=== PATIENT | female | born 1935 | race Caucasian/White ===

== ENCOUNTER → 2017-08-28 | Outpatient (CLI) | payer OTHER ==
[2016-06-16 09:57] VITALS: BP 140/63
[2017-08-28 16:31] LABS: ABG BASE EXCESS -1.8 mmol/L (-2.0-2.0); ABG HCO3 21.9 mmol/L (22-26)
== END ==
LOC: RT 16:06
PROVIDERS: ATTEND Internal Medicine
DX: J43.2 Centrilobular emphysema (principal)
CPT/HCPCS: 36600; 82803

== ENCOUNTER 2019-03-21 20:43 | Inpatient (IN) ==
[2019-03-21] MEDS ORDERED: CARDIZEM INJ 50 MG VIAL ONE (21:00)
[2019-03-21] MEDS ORDERED: ADENOCARD INJ 6 MG IVP ONE (21:09)
[2019-03-21] MEDS ORDERED: DUONEB 0.5 MG/3 MG NEB ONE (21:09)
[2019-03-21] MEDS ORDERED: PULMICORT NEB TX 0.5 MG NEB ONE ×2 (21:09→21:11)
[2019-03-21] MEDS ORDERED: CARDIZEM INJ 50 MG VIAL IVP ONE ×2 (21:16→21:44)
[2019-03-21] MEDS ORDERED: SOLU-Medrol 40 MG VIAL IVP ONE (21:25)
--- NOTE | 2019-03-21 21:36 | DR.SOBA ---
HPI Time Seen Time Seen by Provider: 03/21/19 21:09 Complaints Chief Complaint Doctors Comments: An 83 y/o female presenting via EMS unit with worsening of SOB x few days. Also noted with rapid HR which she states has been ongoing over 1 month. With regards to the HR, her son states she is waiting for a procedure to be arranged/done here at this hospital. She was noted in SVT by the EMS crew and received 6 mg of Adenosine IV. This did not convert the rate/rhythm. Reviewed Nurses Notes Reviewed: Yes Source History Provided: Patient, Family Member and EMS Mode of Arrival Mode of Arrival: EMS Context Onset:: At Rest PE Risk Factors:: None History of:: COPD Currently on:: Inhaled Bronchodilators Prehospital Care:: O2 Modifying Factors Worsens:: Lying Flat Improves:: Nothing Associated Signs and Symptoms Associated Signs and Symptoms: None PMH PMH Past Surgical History: Yes ROS Review of Systems Constitutional: No Symptoms Reported Eyes: No Symptoms Reported ENTM: No Symptoms Reported Respiratoy: Short of Breath Cardiovascular: Palpitations; negative No Symptoms Reported, See HPI, Chest Pain, Edema, Syncope, Cyanosis and Skin Mottling Gastrointestinal/Abdominal: No Symptoms Reported Genitourinary: No Symptoms Reported Neurological: No Symptoms Reported Musculoskeletal: No Symptoms Reported Integumentary: No Symptoms Reported Hematologic/Lymphatic: No Symptoms Reported Endocrine: No Symptoms Reported Psychiatric: No Symptoms Reported PE Vital Signs Vitals: Temperature 98 F Pulse Rate 98 Respiratory Rate 31 Blood Pressure 117/61 O2 Sat by Pulse Oximetry 98 General Limitations: No Limitations General Appearance: Alert and In Distress Head Head Exam: Normal Inspection, Atraumatic and Normocephalic Eyes Eye exam: Normal Appearance and EOMI ENT ENT Exam: Normal Oropharynx and Mucous Membranes Moist Neck Neck Exam: Normal Inspection, Full ROM and Trachea Midline Chest Chest Inspection: Normal Inspection and Symmetric Chest Wall Rise Respiratory Respiratory Exam: Accessory Muscle Use, Respiratory Distress and Other (Tachypnea) Respiratory Exam: Bilateral: Decreased Breath Sounds Cardiovascular Cardiovascular Exam: Tachycardia, +S1 and +S2 Abdominal Exam Abdominal Exam: Normal Inspection, Normal Bowel Sounds and Soft Extremities Extremities Exam: Normal Inspection and Full ROM Back Back Exam: Normal Inspection Neurologic Neurological Exam: Alert and Oriented X3 Psychiatric Psychiatric Exam: Normal Affect and Normal Mood Skin Skin Exam: Dry and Normal Color COURSE Reevaluation 1st: Improved 2nd: Improved Education/Counseling Education/Counseling: Patient, Family, Education and Counseling Educated On: Treatment, Diagnosis, Prognosis and Needs for Follow Up ROR Labs Reviewed Result Diagrams: 03/21/19 21:26 03/21/19 21:26 Laboratory: WBC 11.8 X10^3/uL (3.6-10.0) H 03/21/19 21:26 RBC 4.44 X10^6/uL (3.5-5.4) 03/21/19 21:26 Hgb 13.5 g/dL (12.0-16.0) 03/21/19 21:26 Hct 42.4 % (36.0-47.0) 03/21/19 21:26 MCV 95.4 fL (80.0-100.0) 03/21/19 21:26 MCH 30.4 pg (27.0-34.0) 03/21/19 21: MCHC 31.8 g/dL (33.0-35.0) L 03/21/19 21: RDW 15.7 % (11.6-16.5) 03/21/19 21:26 Plt Count 196 X10^3/uL (150.0-450.0) 03/21/19 21:26 MPV 10.8 fL (7.4-11.0) 03/21/19 21:26 Neut % (Auto) 52.0 % (42.0-75.0) 03/21/19 21: Lymph % (Auto) 38.9 % (21.0-51.0) 03/21/19 21:26 [place] % (Auto) 7.2 % (0.0-13.0) 03/21/19 21:26 Eos % (Auto) 1.2 % (0.9-2.9) 03/21/19 21:26 Baso % (Auto) 0.7 % (0.2-1.0) 03/21/19 21:26 Neut # (Auto) 6.1 x10^3/uL (2.2-4.8) H 03/21/19 21:26 Lymph # (Auto) 4.6 X10^3/uL (1.3-2.9) H 03/21/19 21:26 [place] # (Auto) 0.9 x10^3/uL (0.3-0.8) H 03/21/19 21:26 Eos # (Auto) 0.1 x10^3/uL (0.0-0.2) 03/21/19 21:26 Baso # (Auto) 0.1 X10^3/uL (0.0-0.1) 03/21/19 21:26 Absolute Nucleated RBC 0.1 /100WBC 03/21/19 21:26 Sample Site Rbra 03/21/19 23:43 ABG pH 7.300 (7.35-7.45) L 03/21/19 23:43 ABG pCO2 44.0 mmHg (35.0-45.0) 03/21/19 23:43 ABG pO2 178.0 mmHg (80.0-100.0) H 03/21/19 23:43 ABG HCO3 21.6 mmol/L (22-26) L 03/21/19 23:43 ABG O2 Saturation 99.0 % (90-100) 03/21/19 23:43 ABG Base Excess -4.7 mmol/L (-2.0-2.0) L 03/21/19 23:43 Av Test Na 03/21/19 23:43 A-a Gradient 88.0 mmHg 03/21/19 23:43 FiO2 45.0 03/21/19 23:43 Blood Gas Comments Julio abg well-mtf 03/21/19 23:43 Sodium 138 mmol/L (136-145) 03/21/19 21:26 Corrected Sodium 143 mmol/L (136-145) 03/21/19 21:26 Potassium 4.8 mmol/L (3.5-5.1) 03/21/19 21:26 Chloride 102 mmol/L (98-107) 03/21/19 21:26 Carbon Dioxide 25.2 mmol/L (21-32) 03/21/19 21:26 BUN 11 mg/dL (7-18) 03/21/19 21:26 Creatinine 1.19 mg/dL (0.55-1.02) H 03/21/19 21:26 Est GFR (MDRD) Af Amer 56 (>60) L 03/21/19 21:26 Est GFR (MDRD) Non-Af 46 (>60) L 03/21/19 21:26 Glucose 320 mg/dL (65-99) H 03/21/19 21:26 Calcium 8.4 mg/dL (8.5-10.1) L 03/21/19 21:26 Corrected Calcium TNP 03/21/19 21:26 Total Bilirubin 0.80 mg/dL (0.2-1.0) 03/21/19 21:26 AST 16 Units/L (15-37) 03/21/19 21:26 ALT 10 Units/L (12-78) L 03/21/19 21:26 Alkaline Phosphatase 84 Units/L (46-116) 03/21/19 21:26 Creatine Kinase 42 Units/L (26-192) 03/21/19 21:26 CK-MB (CK-2) 1.6 ng/mL (0-4.0) 03/21/19 21:26 CK/CKMB % Calc 3.8 % (<4) 03/21/19 21:26 Troponin I 0.06 ng/mL (0-1.5) 03/21/19 21:26 Total Protein 7.3 g/dL (6.4-8.2) 03/21/19 21:26 Albumin 3.4 g/dL (3.4-5.0) 03/21/19 21:26 Globulin 3.9 g/dL (2.5-4.5) 03/21/19 21:26 Albumin/Globulin Ratio 0.9 Ratio (1.1-2.1) L 03/21/19 21:26 Specimen Type Catherized urine 03/21/19 21:10 Urine Color Yellow (YELLOW) 03/21/19 21:10 Urine Appearance Slightly hazy (CLEAR) 03/21/19 21:10 Urine pH 6.0 (5.0 - 8.0) 03/21/19 21:10 Ur Specific [place] 1.010 (1.000-1.030) 03/21/19 21:10 Urine Protein 2+ (NEGATIVE) 03/21/19 21:10 Urine Glucose (UA) Negative (NEGATIVE) 03/21/19 21:10 Urine Ketones 1+ (NEGATIVE) 03/21/19 21:10 Urine Occult Blood 1+ (NEGATIVE) 03/21/19 21:10 Urine Nitrite Negative (NEGATIVE) 03/21/19 21:10 Urine Bilirubin Negative (NEGATIVE) 03/21/19 21:10 Urine Urobilinogen Normal (NORMAL) 03/21/19 21:10 Ur Leukocyte Esterase Negative (NEGATIVE) 03/21/19 21:10 Urine RBC 3-5 /HPF (NONE SEEN) 03/21/19 21:10 Urine WBC None seen /HPF (NONE SEEN) 03/21/19 21:10 Ur Squamous Epith Cells Rare /HPF (NEGATIVE) 03/21/19 21:10 Amorphous Sediment 2+ /HPF (NEGATIVE) 03/21/19 21:10 Urine Bacteria Trace /HPF (NEGATIVE) 03/21/19 21:10 Hyaline Casts Rare /LPF (NEGATIVE) 03/21/19 21:10 Ur Culture Indicated? No/not indicated 03/21/19 21:10 XRAY XRAY Interpreted by: Self XRAY Findings: CXR: Emhysematous lungs with chronic interstitial markings at the base. EKG Rate: 186 [place]: Normal Rhythm: ST Block: None Hypertrophy: None ST: Normal Opioid Opioid Risk Tool Total: 0 Total Score Risk Category: Low Risk Copyright: [facility] predicting aberrant behaviors Diagnosis Discharge Problem: Acute exacerbation of chronic obstructive pulmonary disease (COPD), Sustained SVT, HTN (hypertension), malignant Respiratory failure, [id number] Qualifiers: Respiratory failure complication: hypoxia and hypercapnia Qualified Code(s): J96.21 - Acute and chronic respiratory failure with hypoxia Instructions Forms: Excuse From Work
[2019-03-21 21:38] LABS: BILIRUBIN,URINE NEGATIVE (NEGATIVE); BLOOD/HEMOGLOBIN,URINE 1+ (NEGATIVE); GLUCOSE, URINE NEGATIVE (NEGATIVE); KETONES,URINE 1+ (NEGATIVE); LEUKOCYTE ESTERASE ,URINE NEGATIVE (NEGATIVE); NITRITES,URINE NEGATIVE (NEGATIVE); PROTEIN,URINE 2+ (NEGATIVE); UROBILINOGEN,URINE NORMAL (NORMAL)
[2019-03-21 21:39] LABS: AMORPHOUS SEDIMENT,UR 2+ /HPF (NEGATIVE); APPEARANCE,URINE SLIGHTLY HAZY (CLEAR); BACTERIA,URINE TRACE /HPF (NEGATIVE); COLOR,URINE YELLOW (YELLOW); HYALINE CASTS, URINE RARE /LPF (NEGATIVE); SQUAMOUS EPITHELIAL CELL,UR RARE /HPF (NEGATIVE)
[2019-03-21] MEDS ORDERED: SOLU-Medrol 40 MG VIAL ONE (21:44)
[2019-03-21 21:50] LABS: ABG BASE EXCESS -7.5 mmol/L (-2.0-2.0); ABG HCO3 22.8 mmol/L (22-26)
[2019-03-21 21:51] LABS: BLOOD UREA NITROGEN 11 mg/dL (7-18); CALCIUM 8.4 mg/dL (8.5-10.1); CARBON DIOXIDE 25.2 mmol/L (21-32); CHLORIDE 102 mmol/L (98-107); COR NA(FOR HYPERGLY) 143 mmol/L (136-145); CREATININE 1.19 mg/dL (0.55-1.02); SODIUM 138 mmol/L (136-145); TROPONIN I 0.06 ng/mL (0-1.5); eGFR NON BLACK RACES 46 (>60)
[2019-03-21 21:55] LABS: BASOPHILS # (AUTO) 0.1 X10^3/uL (0.0-0.1); BASOPHILS % (AUTO) 0.7 % (0.2-1.0); EOSINOPHILS # (AUTO) 0.1 x10^3/uL (0.0-0.2); EOSINOPHILS % (AUTO) 1.2 % (0.9-2.9); HEMATOCRIT 42.4 % (36.0-47.0); HEMOGLOBIN 13.5 g/dL (12.0-16.0); LYMPHOCYTES # (AUTO) 4.6 X10^3/uL (1.3-2.9); LYMPHOCYTES % (AUTO) 38.9 % (21.0-51.0); MEAN CORPUSCULAR HEMOGLOBIN 30.4 pg (27.0-34.0); MEAN CORPUSCULAR HGB CONC 31.8 g/dL (33.0-35.0); MEAN CORPUSCULAR VOLUME 95.4 fL (80.0-100.0); MEAN PLATELET VOLUME 10.8 fL (7.4-11.0); MONOCYTES # (AUTO) 0.9 x10^3/uL (0.3-0.8); MONOCYTES % (AUTO) 7.2 % (0.0-13.0); NEUTROPHILS # (AUTO) 6.1 x10^3/uL (2.2-4.8); PLATELET COUNT 196 X10^3/uL (150.0-450.0); RED BLOOD COUNT 4.44 X10^6/uL (3.5-5.4); RED CELL DISTRIBUTION WIDTH 15.7 % (11.6-16.5); WHITE BLOOD COUNT 11.8 X10^3/uL (3.6-10.0)
[2019-03-21 21:56] LABS: ALANINE AMINOTRANSFERASE 10 Units/L (12-78); ALBUMIN 3.4 g/dL (3.4-5.0); ALKALINE PHOSPHATASE 84 Units/L (46-116); ASPARTATE AMINO TRANSFERASE 16 Units/L (15-37); CKMB % 3.8 % (<4); CREATINE KINASE 42 Units/L (26-192); CREATINE KINASE MB 1.6 ng/mL (0-4.0); TOTAL PROTEIN 7.3 g/dL (6.4-8.2)
[2019-03-21] MEDS ORDERED: ROCEPHIN VIAL 1 GRAM IVP ONE (22:00)
--- NOTE | 2019-03-21 22:06 | RAD ---
HISTORY: Dyspnea Study: Single-view of the chest Comparison: December 19, 2011 Findings: The patient is slightly rotated. The cardiac silhouette is enlarged. Diffuse coarse interstitial changes are seen throughout both lungs. Superimposed patchy bibasilar infiltrate cannot be excluded. Blunting of the costophrenic angles is also noted suggesting pleural thickening and/or small effusions. The aortic knob is partially calcified IMPRESSION: Cardiomegaly. Coarse interstitial changes bilaterally. Superimposed patchy bibasilar infiltrate cannot be excluded. Correlate clinically. Blunting of the costophrenic angles as noted above. Reported By:
[2019-03-21] MEDS ORDERED: ROCEPHIN VIAL 1 GRAM ONE (22:19)
[2019-03-21 23:48] LABS: ABG BASE EXCESS -4.7 mmol/L (-2.0-2.0); ABG HCO3 21.6 mmol/L (22-26)
[2019-03-22] MEDS ORDERED: NS 100 ML IV 100 ML ONE (00:37)
[2019-03-22] MEDS ORDERED: CARDIZEM INJ 125 MG VIAL ONE (00:37)
[2019-03-22] MEDS: NS 1000 ML 1,000 ML IV SCH ×4 (00:51→22:50)
[2019-03-22] MEDS: CARDIZEM INJ 125 MG VIAL 125 MG in NS 100 ML IV 100 ML IV PRN ×2 (00:51→14:02)
[2019-03-22] MEDS ORDERED: DUONEB 0.5 MG/3 MG NEB SCH (01:00)
[2019-03-22] MEDS ORDERED: SALINE 3% 15 ML NEB TX NEB ONE (01:02)
[2019-03-22] MEDS ORDERED: ATIVAN INJ 2 MG VIAL ONE (01:06)
[2019-03-22] MEDS ORDERED: ATIVAN INJ 2 MG VIAL IVP PRN (01:12)
[2019-03-22] MEDS: DUONEB 0.5 MG/3 MG NEB SCH ×6 (01:45→20:08)
[2019-03-22 04:12] VITALS: BMI 19.8
[2019-03-22] MEDS ORDERED: LEVAQUIN PREMIX IV 500 MG 500 MG/100 ML BAG IV ONE (05:00)
[2019-03-22 05:23] LABS: ABG BASE EXCESS -8.1 mmol/L (-2.0-2.0)
[2019-03-22 05:24] LABS: ABG HCO3 17.8 mmol/L (22-26)
[2019-03-22] MEDS ORDERED: XOPENEX 1.25 MG/3 ML NEBULE NEB SCH (06:00)
[2019-03-22] MEDS: HumuLIN R SUBCUT PRN ×3 (06:12→20:18)
[2019-03-22] MEDS: SOLU-Medrol 40 MG VIAL IVP SCH ×3 (06:13→21:17)
[2019-03-22 07:04] LABS: BASOPHILS % (AUTO) 0.3 % (0.2-1.0); EOSINOPHILS % (AUTO) 0.1 % (0.9-2.9); HEMATOCRIT 39.1 % (36.0-47.0); HEMOGLOBIN 12.6 g/dL (12.0-16.0); LYMPHOCYTES # (AUTO) 0.6 X10^3/uL (1.3-2.9); LYMPHOCYTES % (AUTO) 5.7 % (21.0-51.0); MEAN CORPUSCULAR HEMOGLOBIN 30.4 pg (27.0-34.0); MEAN CORPUSCULAR HGB CONC 32.2 g/dL (33.0-35.0); MEAN CORPUSCULAR VOLUME 94.5 fL (80.0-100.0); MEAN PLATELET VOLUME 10.4 fL (7.4-11.0); MONOCYTES # (AUTO) 0.4 x10^3/uL (0.3-0.8); MONOCYTES % (AUTO) 3.9 % (0.0-13.0); NEUTROPHILS # (AUTO) 9.5 x10^3/uL (2.2-4.8); PLATELET COUNT 121 X10^3/uL (150.0-450.0); RED BLOOD COUNT 4.13 X10^6/uL (3.5-5.4); RED CELL DISTRIBUTION WIDTH 15.9 % (11.6-16.5); WHITE BLOOD COUNT 10.6 X10^3/uL (3.6-10.0)
[2019-03-22 07:31] LABS: CALCIUM 8.2 mg/dL (8.5-10.1); CREATININE 1.28 mg/dL (0.55-1.02)
[2019-03-22 07:32] LABS: CARBON DIOXIDE 13.9 mmol/L (21-32)
[2019-03-22 07:33] LABS: CKMB % 3.2 % (<4); CREATINE KINASE MB 1.9 ng/mL (0-4.0); TROPONIN I 0.22 ng/mL (0-1.5)
[2019-03-22] MEDS: PULMICORT NEB TX 0.5 MG NEB SCH ×2 (08:35→20:07)
[2019-03-22] MEDS ORDERED: PROTONIX TAB 40 MG PO SCH (09:00)
[2019-03-22] MEDS: VSL#3 PO SCH ×2 (09:21→11:52)
[2019-03-22] MEDS ORDERED: VALIUM PO PRN (09:51)
[2019-03-22] MEDS ORDERED: PHARMACY CONSULT - DOSE _____ XX SCH (10:00)
--- NOTE | 2019-03-22 10:39 | RAD ---
History: Dyspnea Study: Portable AP chest Comparison: Yesterday Findings: The heart size is normal. There is improved interstitial edema. There are tiny pleural effusions. No significant bony abnormality is demonstrated. Impression: Improving congestive heart failure with developing small pleural effusions Reported By:
[2019-03-22] MEDS: FORTAZ or TAZICEF VIAL INJ IVP SCH ×3 (11:24→21:17)
[2019-03-22] MEDS ORDERED: NS 100 ML IV + SPIKE MINIBAG* 100 ML ONE (15:21)
[2019-03-22] MEDS: MORPHINE SULFATE INJ 2 MG INJ IVP PRN (20:44)
[2019-03-22] MEDS: SNACK - Diabetic Appropriate PO SCH (20:50)
[2019-03-22] MEDS: LOVENOX INJ 30 MG SYR SC SCH (21:16)
[2019-03-22] MEDS ORDERED: VALIUM INJ IVP PRN (22:53)
[2019-03-23] MEDS ORDERED: VALIUM PO PRN (00:13)
[2019-03-23] MEDS ORDERED: VALIUM ONE (00:19)
[2019-03-23] MEDS: DUONEB 0.5 MG/3 MG NEB SCH ×6 (00:36→20:06)
[2019-03-23] MEDS: NORCO 5/325 MG TAB PO PRN ×2 (01:14→21:15)
[2019-03-23] MEDS: CARDIZEM INJ 125 MG VIAL 125 MG in NS 100 ML IV 100 ML IV PRN ×5 (02:20→22:00)
[2019-03-23 05:37] LABS: BASOPHILS % (AUTO) 0.3 % (0.2-1.0); HEMATOCRIT 35.9 % (36.0-47.0); HEMOGLOBIN 11.7 g/dL (12.0-16.0); LYMPHOCYTES # (AUTO) 0.4 X10^3/uL (1.3-2.9); LYMPHOCYTES % (AUTO) 3.8 % (21.0-51.0); MEAN CORPUSCULAR HEMOGLOBIN 30.2 pg (27.0-34.0); MEAN CORPUSCULAR HGB CONC 32.6 g/dL (33.0-35.0); MEAN CORPUSCULAR VOLUME 92.7 fL (80.0-100.0); MEAN PLATELET VOLUME 10.5 fL (7.4-11.0); MONOCYTES # (AUTO) 0.7 x10^3/uL (0.3-0.8); MONOCYTES % (AUTO) 5.8 % (0.0-13.0); NEUTROPHILS # (AUTO) 10.6 x10^3/uL (2.2-4.8); NEUTROPHILS % (AUTO) 90.1 % (42.0-75.0); PLATELET COUNT 127 X10^3/uL (150.0-450.0); RED BLOOD COUNT 3.87 X10^6/uL (3.5-5.4); RED CELL DISTRIBUTION WIDTH 15.5 % (11.6-16.5); WHITE BLOOD COUNT 11.8 X10^3/uL (3.6-10.0)
[2019-03-23 05:41] LABS: ABG BASE EXCESS -6.9 mmol/L (-2.0-2.0)
[2019-03-23 05:45] LABS: ABG ALLEN TEST POS; ABG HCO3 17.5 mmol/L (22-26)
[2019-03-23 05:56] LABS: ALBUMIN 2.6 g/dL (3.4-5.0); CALCIUM 8.1 mg/dL (8.5-10.1); CARBON DIOXIDE 16.6 mmol/L (21-32); COR CA(FOR HYPOALB) 9.2 mg/dL (8.5-10.1); CREATININE 1.47 mg/dL (0.55-1.02)
[2019-03-23] MEDS ORDERED: SOLU-Medrol 40 MG VIAL IVP SCH (06:00)
--- NOTE | 2019-03-23 06:05 | RAD ---
Examination: AP chest History: SOB Comparison 03/22/2019 Findings: Continued stable normal heart size. There is little change in appearance of the previously described interstitial pulmonary pattern which may reflect residual pulmonary edema. There is a small left pleural effusion. No developing consolidation or pneumothorax seen. Impression: No significant change since 1 day prior. Reported By:
[2019-03-23 06:09] LABS: PLATELET MORPHOLOGY COMMENT NORMAL (NORMAL)
[2019-03-23] MEDS: FORTAZ or TAZICEF VIAL INJ IVP SCH ×3 (06:09→21:16)
[2019-03-23] MEDS: HumuLIN R SUBCUT PRN ×3 (06:12→21:18)
[2019-03-23] MEDS: SOLU-Medrol 40 MG VIAL IVP SCH ×3 (06:12→21:16)
[2019-03-23] MEDS: MORPHINE SULFATE INJ 2 MG INJ IVP PRN (07:55)
[2019-03-23] MEDS: PULMICORT NEB TX 0.5 MG NEB SCH ×2 (09:00→20:06)
[2019-03-23] MEDS: LEVAQUIN PREMIX IV 250 MG 250 MG/50 ML BAG IV SCH (09:57)
[2019-03-23] MEDS: LOVENOX INJ 30 MG SYR SC SCH ×2 (09:58→21:14)
[2019-03-23] MEDS: PROTONIX INJ 40 MG VIAL IVP SCH (09:58)
[2019-03-23] MEDS: VALIUM PO SCH ×3 (10:13→21:16)
[2019-03-23] MEDS: LASIX IVP SCH ×2 (10:13→21:17)
[2019-03-23] MEDS: VSL#3 PO SCH (10:14)
[2019-03-23] MEDS: PROzac PO SCH (10:14)
[2019-03-23] MEDS: MORPHINE SULFATE INJ 2 MG INJ IVP SCH ×4 (10:16→21:11)
[2019-03-23] MEDS: NS 1000 ML 1,000 ML IV SCH (11:49)
--- NOTE | 2019-03-23 18:30 | DR.H&P ---
H&P - History & Physical for Day of: H&P Date: 03/22/19 - Chief Complaint Chief Complaint: SHORTNESS OF BREATH, TACHYCARDIA - History of Present Illness History of Present Illness: IS A 83 YEAR OLD PATIENT OF OURS WHO PRESENTED TO THE ER WITH COMPLAINTS OF SHORTNESS OF BREATH X 2-3 DAYS. SHE ALSO REPORTS RAPID HEART RATE WHICH SHE REPORTS HAS BEEN ONGOING FOR MORE THAN A MONTH. EMS REPORTS THAT SHE WAS IN SVT WITH HR IN THE 170s. SHE WAS GIVEN ADENOSINE 6MG IV. THIS DID NOT CONVERT THE RATE/RHYTHM. MEDICAL HISTORY INCLUDES COPD AND EMPHYSEMA. FAMILY REPORTS THAT PATIENT STOPPED TAKING ALL OF HER MEDICATIONS ABOUT A MONTH AGO. THEY ALSO REPORT THAT SHE HAS HAD DIFFICULTY SWALLOWING. ON ARRIVAL TO THE ER, HER HEART RATE REMAINED IN THE 180s. ON ARRIVAL, VITALS WERE 98.0-186-37-99%-165/98. LABS WERE OBTAINED. ABNORMAL LAB VALUES INCLUDE THE FOLLOWING: WBC 11.8, CREATININE 1.19, GLUCOSE 320, CALCIUM 8.4, ALT 10. CARDIAC ENZYMES WITHIN NORMAL LIMITS. ABG WAS OBTAINED AND REVEALED: PH 7.120, PC02 70.0, P02 65.0, HC03 22.8, 02 SATURATION 22.8, 02 SATURATION 84.0, BASE EXCESS -7.5. URINALYSIS OBTAINED AND REVEALED: WBC NONE SEEN, RBC 3-5, BACTERIA TRACE, OCCULT BLOOD 1+, LEUKOCYTES NEGATIVE. EKG WAS OBTAINED AND REVEALED SUPRAVENTRICULAR TACHYCARDIA WITH HR 186. A CHEST XRAY WAS OBTAINED AND REVEALED: Coarse interstitial changes bilaterally. Superimposed patchy bibasilar infiltrate cannot be excluded. Correlate clinically. Blunting of the costophrenic angles as noted above. SHE WAS GIVEN RESPIRATORY TREATMENT, ATIVAN 0.5MG IV X 1, LEVAQUIN 500MG IV X 1, AND STARTED ON A CARDIZEM DRIP. HR DECREASED TO THE 120s. SHE WAS ADMITTED TO THE ICU FOR FURTHER EVALUATION AND TREATMENT OF ACUTE ON CHRONIC RESPIRATORY FAILURE WITH HYPERCAPNIA AND HYPOXIA, COPD EXACERBATION WITH ACUTE BRONCHITIS, AND TACHYCARDIA. WE WILL FOLLOW UP WITH AM LABS, CHEST XRAY, AND ABG AND CONTINUE TO MONITOR. - Past Medical History Past Medical History: Anxiety, CHF, COPD, Diabetes, Hypertension - Past Surgical History Surgical History: Angioplasty/Stents, Bowel Resection, Ortho Surgery - Family History Family Medical History: Diabetes Mellitus, [place], Coronary Artery Disease, Hypertension - Social History Does patient currently use any type of tobacco product: No Have you used tobacco products in the last 12 months: No Type of Tobacco Use: None Does any household member use tobacco: No Alcohol Use: None Drug Use: None Prescription drug monitoring program results: PDMP was not reviewed - Medications Home Medications: No Known Drug Allergies Allergy (Verified 03/21/19 21:53) CONTINUE taking the following medications NK 03/22/19 [History] - Review of Systems Constitutional: No Symptoms Reported Eyes: No Symptoms Reported ENT: No Symptoms Reported Respiratory: Shortness of Breath, SOB with Excertion Cardiovascular: See HPI, Palpitations, Light Headedness Gastrointestinal: No Symptoms Reported Genitourinary: No Symptoms Reported Musculoskeletal: No Symptoms Reported Skin: No Symptoms Reported Neurological: Weakness - Physical Exam Vital Signs: Temperature 97.9 F Pulse Rate 83 Respiratory Rate 14 Blood Pressure 136/65 O2 Sat by Pulse Oximetry 100 Oriented: Normal Eyes: Normal Ear: Normal Nose: Normal Throat: Normal Respiratory: Diminished Throughout Cardiovascular: Tachycardia. negative: S3, S4, Murmur : Normal Auscultation: Bowel Sounds: Normal Palpation: Normal Tenderness: Normal Skin: Normal Musculoskeletal: Normal Psychiatric: Anxiety Mood Description: Anxious Affect: Anxious Speech Pattern: Clear - Assessment/Plan (1) Respiratory failure with hypoxia and hypercapnia Qualifiers: Chronicity: acute on chronic Qualified Code(s): J96.21 - Acute and chronic respiratory failure with hypoxia; J96.22 - Acute and chronic respiratory failure with hypercapnia Status: Acute Plan: ADMIT, BIPAP, SUPPLEMENTAL OXYGEN, RESPIRATORY TX, IV ANTIBIOTICS, CONTINUE TO MONITOR (2) COPD with acute bronchitis Status: Acute Plan: ADMIT, BIPAP, SUPPLEMENTAL OXYGEN, RESPIRATORY TX, IV ANTIBIOTICS, CONTINUE TO MONITOR (3) Sustained SVT Status: Acute Plan: 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
[2019-03-23] MEDS: SNACK - Diabetic Appropriate PO SCH (21:14)
[2019-03-24] MEDS: DUONEB 0.5 MG/3 MG NEB SCH ×6 (00:20→20:25)
[2019-03-24] MEDS: NS 1000 ML 1,000 ML IV SCH (01:28)
[2019-03-24] MEDS: MORPHINE SULFATE INJ 2 MG INJ IVP SCH ×6 (02:28→21:54)
[2019-03-24 04:44] LABS: ABG BASE EXCESS -2.7 mmol/L (-2.0-2.0); ABG HCO3 21.8 mmol/L (22-26)
--- NOTE | 2019-03-24 05:10 | RAD ---
Chest radiograph, single AP view. History: Shortness of breath. Comparison: 03/23/2019. Findings: There are increasing left and new right pleural effusions and adjacent airspace opacities. There is cardiomegaly and pulmonary vasculature congestion, unchanged. No evidence of pneumothorax. Otherwise unchanged. Conclusion: CHF/volume overload with increased bilateral pleural effusions and adjacent atelectasis or infiltrate. Reported By:
[2019-03-24 05:25] LABS: BASOPHILS % (AUTO) 0.1 % (0.2-1.0); HEMATOCRIT 34.5 % (36.0-47.0); HEMOGLOBIN 11.4 g/dL (12.0-16.0); LYMPHOCYTES # (AUTO) 0.3 X10^3/uL (1.3-2.9); LYMPHOCYTES % (AUTO) 2.2 % (21.0-51.0); MEAN CORPUSCULAR HEMOGLOBIN 30.4 pg (27.0-34.0); MEAN CORPUSCULAR HGB CONC 33.1 g/dL (33.0-35.0); MEAN CORPUSCULAR VOLUME 91.7 fL (80.0-100.0); MONOCYTES # (AUTO) 0.7 x10^3/uL (0.3-0.8); NEUTROPHILS # (AUTO) 10.7 x10^3/uL (2.2-4.8); NEUTROPHILS % (AUTO) 91.7 % (42.0-75.0); PLATELET COUNT 131 X10^3/uL (150.0-450.0); RED BLOOD COUNT 3.76 X10^6/uL (3.5-5.4); RED CELL DISTRIBUTION WIDTH 15.7 % (11.6-16.5); WHITE BLOOD COUNT 11.6 X10^3/uL (3.6-10.0)
[2019-03-24 05:41] LABS: ALBUMIN 2.8 g/dL (3.4-5.0); CALCIUM 7.9 mg/dL (8.5-10.1); CARBON DIOXIDE 19.4 mmol/L (21-32); COR CA(FOR HYPOALB) 8.9 mg/dL (8.5-10.1); CREATININE 1.82 mg/dL (0.55-1.02); TOTAL PROTEIN 6.3 g/dL (6.4-8.2)
[2019-03-24] MEDS: FORTAZ or TAZICEF VIAL INJ IVP SCH ×2 (06:33→21:50)
[2019-03-24] MEDS: SOLU-Medrol 40 MG VIAL IVP SCH ×3 (06:33→21:55)
[2019-03-24] MEDS: VALIUM PO SCH ×4 (06:33→21:55)
[2019-03-24] MEDS: HumuLIN R SUBCUT PRN ×4 (06:34→21:51)
[2019-03-24] MEDS: PULMICORT NEB TX 0.5 MG NEB SCH ×2 (09:15→20:25)
[2019-03-24] MEDS ORDERED: LASIX IVP ONE (09:21)
[2019-03-24] MEDS: LEVAQUIN PREMIX IV 250 MG 250 MG/50 ML BAG IV SCH (09:55)
[2019-03-24] MEDS: PROTONIX INJ 40 MG VIAL IVP SCH (09:56)
[2019-03-24] MEDS: PROzac PO SCH (09:56)
[2019-03-24] MEDS: VSL#3 PO SCH (09:56)
[2019-03-24] MEDS: MILK OF MAGNESIA PO SCH ×2 (09:56→21:50)
[2019-03-24] MEDS: LOVENOX INJ 30 MG SYR SC SCH (09:57)
[2019-03-24] MEDS: LASIX IVP SCH ×2 (09:58→21:50)
[2019-03-24] MEDS ORDERED: K-DUR TAB 20 MEQ PO PRN (09:59)
[2019-03-24] MEDS ORDERED: POTASSIUM CHL 40 MEQ/NS 0.45% 500 ML IV PRN (09:59)
[2019-03-24] MEDS ORDERED: K-RIDER 10 MEQ/NS 100 ML 10 MEQ/100 ML BAG IV PRN (09:59)
[2019-03-24] MEDS ORDERED: POTASSIUM CHLORIDE LIQ 20 MEQ UDC PO PRN (09:59)
[2019-03-24] MEDS ORDERED: POTASSIUM CHL 60 MEQ/NS 0.45% 500 ML IV PRN (09:59)
[2019-03-24] MEDS ORDERED: KLOR-CON PO PRN (09:59)
[2019-03-24] MEDS ORDERED: MICRO K EXTEN CAP 10 MEQ PO PRN (09:59)
[2019-03-24] MEDS: CARDIZEM CD 180 MG PO SCH (15:41)
[2019-03-24] MEDS ORDERED: EUCERIN ONE (16:30)
[2019-03-24] MEDS ORDERED: EUCERIN TOP PRN (16:32)
[2019-03-24] MEDS ORDERED: PREPARATION H OINT ONE (16:37)
[2019-03-24] MEDS ORDERED: PREPARATION H OINT RECTAL PRN (16:41)
[2019-03-24] MEDS: MAGNESIUM SULFATE 1 GRAM/100 mL PREMIX 1 GM/100 ML BAG IV PRN (17:31)
--- NOTE | 2019-03-24 20:58 | PCM.PROG ---
Progress Note - Progress Note for Day of Date of Exam: 03/23/19 - Subjective Subjective: IS BEING TREATED FOR RESPIRATORY FAILURE WITH HYPOXIA AND HYPERCAPNIA, COPD WITH ACUTE BRONCHITIS, AND TACHYCARDIA. TODAY, SHE IS ALERT AND ORIENTED, SITTING UP IN BED ON MORNING ROUNDS. SHE IS CURRENTLY UTILIZING THE BIPAP AND REMAINS ON A CARDIZEM DRIP. SHE CONTINUES WITH SHORTNESS OF BREATH. STAFF REPORTS THAT WHEN SHE REMOVES BIPAP, OXYGEN SATURATIONS DECREASE TO THE UPPER 80s-90s. FAMILY REPORTS THAT PATIENT BECOMES VERY ANXIOUS WHEN SHE FEELS LIKE HER OXYGEN IS DROPPING. ON EXAMINATION, HEART IS REGULAR IN RATE AND RHYTHM. BILATERAL LUNGS ARE NOTED WITH SCATTERED WHEEZING. ABDOMEN IS FLAT, SOFT, AND NON-TENDER WITH NORMAL BOWEL SOUNDS NOTED IN ALL QUADRANTS. HER VITALS THIS MORNING ARE: 98.4-80-35-100%-125/58. LABS WERE OBTAINED. ABNORMAL LAB VALUES INCLUDE THE FOLLOWING: WBC 11.8, HGB 11.7, HCT 35.9, CARBON DIOXIDE 16.6, BUN 24, CREATININE 1.47, GLUCOSE 208, CALCIUM 8.1, AST 83, TOTAL PROTEIN 6.0, ALBUMIN 2.6. AN ABG WAS OBTAINED AND REVEALED: PH 7.360, PC02 31.0, P02 148, HC03 17.5, 02 SATURATION 99, BASE EXCESS -6.9. A CHEST XRAY WAS OBTAINED AND REVEALED: Continued stable normal heart size. There is little change in appearance of the previously described interstitial pulmonary pattern which may reflect residual pulmonary edema. There is a small left pleural effusion. No developing consolidation or pneumothorax seen. SHE IS CURRENTLY RECEIVING IV ANTIBIOTICS, RESPIRATORY TREATMENTS, CARDIZEM DRIP, ATIVAN 1MG IV PRN, MORPHINE IV PRN, AND IS UTILIZING THE BIPAP. TODAY, WE WILL WEAN HER OFF OF THE DRIP, START LASIX 20MG IV BID, PROZAC 20MG PO DAILY, VALIUM 5MG PO Q8H GUILLERMO, AND MAKE HER MORPHINE SCHEDULED. WE WILL OBTAIN LABS, CHEST XRAY, AND ABG IN THE MORNING. - Past Medical Family Social History Past Med/Fam/Surg Hx: No changes since H&P Allergies: Allergies No Known Drug Allergies Allergy (Verified 03/21/19 21:53) - Review of Systems ROS: No change since H&P - Vital Signs and I&O's Vital Signs: Temperature 97.5 F Pulse Rate 95 Respiratory Rate 30 Blood Pressure 133/63 O2 Sat by Pulse Oximetry 95 Intake and Output: Intake & Output 03/22/19 03/23/19 03/24/19 03/25/19 11:59 11:59 11:59 11:59 Intake Total 560 / 560 2224 / 2224 3107 / 3107 918 / 918 Output Total 350 / 350 700 / 700 2475 / 2475 900 / 900 Balance 210 / 210 1524 / 1524 632 / 632 - Physical Exam Oriented: Normal Eyes: Normal Ear: Normal Nose: Normal Throat: Normal Respiratory: Generalized, Wheezes Cardiovascular: Normal. negative: S3, S4, Murmur : Normal Auscultation: Bowel Sounds: Normal Palpation: Normal Tenderness: Normal Skin: Normal Musculoskeletal: Normal Psychiatric: Anxiety Mood Description: Anxious Affect: Anxious Speech Pattern: Clear, Appropriate - Laboratory and Diagnostics Result Diagrams: 03/24/19 04:02 03/24/19 04:02 Labs: Laboratory WBC 11.6 X10^3/uL (3.6-10.0) H 03/24/19 04:02 RBC 3.76 X10^6/uL (3.5-5.4) 03/24/19 04:02 Hgb 11.4 g/dL (12.0-16.0) L 03/24/19 04:02 Hct 34.5 % (36.0-47.0) L 03/24/19 04:02 MCV 91.7 fL (80.0-100.0) 03/24/19 04:02 MCH 30.4 pg (27.0-34.0) 03/24/19 04:02 MCHC 33.1 g/dL (33.0-35.0) 03/24/19 04:02 RDW 15.7 % (11.6-16.5) 03/24/19 04:02 Plt Count 131 X10^3/uL (150.0-450.0) L 03/24/19 04:02 Plt Count Comment Adequate (ADEQUATE) 03/23/19 04:05 MPV 10.0 fL (7.4-11.0) 03/24/19 04:02 Neut % (Auto) 91.7 % (42.0-75.0) H 03/24/19 04:02 Lymph % (Auto) 2.2 % (21.0-51.0) L 03/24/19 04:02 [place] % (Auto) 6.0 % (0.0-13.0) 03/24/19 04:02 Eos % (Auto) 0.0 % (0.9-2.9) L 03/24/19 04:02 Baso % (Auto) 0.1 % (0.2-1.0) L 03/24/19 04:02 Neut # (Auto) 10.7 x10^3/uL (2.2-4.8) H 03/24/19 04:02 Lymph # (Auto) 0.3 X10^3/uL (1.3-2.9) L 03/24/19 04:02 [place] # (Auto) 0.7 x10^3/uL (0.3-0.8) 03/24/19 04:02 Eos # (Auto) 0.0 x10^3/uL (0.0-0.2) 03/24/19 04:02 Baso # (Auto) 0.0 X10^3/uL (0.0-0.1) 03/24/19 04:02 Absolute Nucleated RBC 0.1 /100WBC 03/24/19 04:02 Total Counted 100 03/23/19 04:05 Neutrophils % (Manual) 91 % (39-76) H 03/23/19 04:05 Lymphocytes % (Manual) 7 % (13-43) L 03/23/19 04:05 Monocytes % (Manual) 2 % (4-9) L 03/23/19 04:05 Plt Morphology Comment Normal (NORMAL) 03/23/19 04:05 RBC Morphology Normal (NORMAL) 03/23/19 04:05 Sample Site Rb 03/24/19 04:30 ABG pH 7.390 (7.35-7.45) 03/24/19 04:30 ABG pCO2 36.0 mmHg (35.0-45.0) 03/24/19 04:30 ABG pO2 74.0 mmHg (80.0-100.0) L 03/24/19 04:30 ABG HCO3 21.8 mmol/L (22-26) L 03/24/19 04:30 ABG O2 Saturation 95.0 % (90-100) 03/24/19 04:30 ABG Base Excess -2.7 mmol/L (-2.0-2.0) L 03/24/19 04:30 Av Test N/a 03/24/19 04:30 A-a Gradient 81.0 mmHg 03/24/19 04:30 FiO2 28.0 03/24/19 04:30 Blood Gas Comments Julio well ae 03/24/19 04:30 Sodium 141 mmol/L (136-145) 03/24/19 04:02 Corrected Sodium 143 mmol/L (136-145) 03/24/19 04:02 Potassium 3.6 mmol/L (3.5-5.1) 03/24/19 04:02 Chloride 107 mmol/L (98-107) 03/24/19 04:02 Carbon Dioxide 19.4 mmol/L (21-32) L 03/24/19 04:02 BUN 28 mg/dL (7-18) H 03/24/19 04:02 Creatinine 1.82 mg/dL (0.55-1.02) H 03/24/19 04:02 Est GFR (MDRD) Af Amer 34 (>60) L 03/24/19 04:02 Est GFR (MDRD) Non-Af 28 (>60) L 03/24/19 04:02 Glucose 184 mg/dL (65-99) H 03/24/19 04:02 Calcium 7.9 mg/dL (8.5-10.1) L 03/24/19 04:02 Corrected Calcium 8.9 mg/dL (8.5-10.1) 03/24/19 04:02 Magnesium 1.6 mg/dL (1.7-2.9) L 03/24/19 04:02 Total Bilirubin 0.40 mg/dL (0.2-1.0) 03/24/19 04:02 AST 117 Units/L (15-37) H 03/24/19 04:02 ALT 43 Units/L (12-78) 03/24/19 04:02 Alkaline Phosphatase 58 Units/L (46-116) 03/24/19 04:02 Creatine Kinase 60 Units/L (26-192) 03/22/19 06:28 CK-MB (CK-2) 1.9 ng/mL (0-4.0) 03/22/19 06:28 CK/CKMB % Calc 3.2 % (<4) 03/22/19 06:28 Troponin I 0.22 ng/mL (0-1.5) 03/22/19 06:28 Total Protein 6.3 g/dL (6.4-8.2) L 03/24/19 04:02 Albumin 2.8 g/dL (3.4-5.0) L 03/24/19 04:02 Globulin 3.5 g/dL (2.5-4.5) 03/24/19 04:02 Albumin/Globulin Ratio 0.8 Ratio (1.1-2.1) L 03/24/19 04:02 Specimen Type Catherized urine 03/21/19 21:10 Urine Color Yellow (YELLOW) 03/21/19 21:10 Urine Appearance Slightly hazy (CLEAR) 03/21/19 21:10 Urine pH 6.0 (5.0 - 8.0) 03/21/19 21:10 Ur Specific [place] 1.010 (1.000-1.030) 03/21/19 21:10 Urine Protein 2+ (NEGATIVE) 03/21/19 21:10 Urine Glucose (UA) Negative (NEGATIVE) 03/21/19 21:10 Urine Ketones 1+ (NEGATIVE) 03/21/19 21:10 Urine Occult Blood 1+ (NEGATIVE) 03/21/19 21:10 Urine Nitrite Negative (NEGATIVE) 03/21/19 21:10 Urine Bilirubin Negative (NEGATIVE) 03/21/19 21:10 Urine Urobilinogen Normal (NORMAL) 03/21/19 21:10 Ur Leukocyte Esterase Negative (NEGATIVE) 03/21/19 21:10 Urine RBC 3-5 /HPF (NONE SEEN) 03/21/19 21:10 Urine WBC None seen /HPF (NONE SEEN) 03/21/19 21:10 Ur Squamous Epith Cells Rare /HPF (NEGATIVE) 03/21/19 21:10 Amorphous Sediment 2+ /HPF (NEGATIVE) 03/21/19 21:10 Urine Bacteria Trace /HPF (NEGATIVE) 03/21/19 21:10 Hyaline Casts Rare /LPF (NEGATIVE) 03/21/19 21:10 Ur Culture Indicated? 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
[2019-03-24] MEDS: SNACK - Diabetic Appropriate PO SCH (20:59)
[2019-03-24] MEDS: COLACE CAP 100 MG PO SCH (21:49)
[2019-03-24] MEDS: NORCO 5/325 MG TAB PO PRN (21:57)
[2019-03-25] MEDS: DUONEB 0.5 MG/3 MG NEB SCH ×5 (01:50→20:25)
[2019-03-25] MEDS: MORPHINE SULFATE INJ 2 MG INJ IVP SCH ×6 (03:50→21:26)
[2019-03-25 05:45] LABS: BASOPHILS % (AUTO) 0.1 % (0.2-1.0); HEMATOCRIT 35.4 % (36.0-47.0); HEMOGLOBIN 11.7 g/dL (12.0-16.0); LYMPHOCYTES # (AUTO) 0.2 X10^3/uL (1.3-2.9); LYMPHOCYTES % (AUTO) 1.3 % (21.0-51.0); MEAN CORPUSCULAR HEMOGLOBIN 30.4 pg (27.0-34.0); MEAN CORPUSCULAR HGB CONC 32.9 g/dL (33.0-35.0); MEAN CORPUSCULAR VOLUME 92.4 fL (80.0-100.0); MEAN PLATELET VOLUME 10.7 fL (7.4-11.0); MONOCYTES # (AUTO) 0.8 x10^3/uL (0.3-0.8); MONOCYTES % (AUTO) 5.9 % (0.0-13.0); NEUTROPHILS # (AUTO) 12.3 x10^3/uL (2.2-4.8); NEUTROPHILS % (AUTO) 92.7 % (42.0-75.0); PLATELET COUNT 121 X10^3/uL (150.0-450.0); RED BLOOD COUNT 3.83 X10^6/uL (3.5-5.4); RED CELL DISTRIBUTION WIDTH 15.9 % (11.6-16.5); WHITE BLOOD COUNT 13.3 X10^3/uL (3.6-10.0)
[2019-03-25] MEDS: SOLU-Medrol 40 MG VIAL IVP SCH (05:57)
[2019-03-25] MEDS: VALIUM PO SCH ×4 (05:59→21:27)
[2019-03-25] MEDS: HumuLIN R SUBCUT PRN ×4 (05:59→21:27)
[2019-03-25 06:04] LABS: PLATELET MORPHOLOGY COMMENT NORMAL (NORMAL)
[2019-03-25 06:05] LABS: ALBUMIN 2.8 g/dL (3.4-5.0); CREATININE 1.99 mg/dL (0.55-1.02); TOTAL PROTEIN 6.5 g/dL (6.4-8.2)
[2019-03-25] MEDS: MAGNESIUM SULFATE 1 GRAM/100 mL PREMIX 1 GM/100 ML BAG IV PRN ×2 (06:41→07:49)
[2019-03-25 06:48] LABS: ABG ALLEN TEST POS; ABG BASE EXCESS 5.6 mmol/L (-2.0-2.0); ABG HCO3 29.8 mmol/L (22-26)
--- NOTE | 2019-03-25 07:16 | RAD ---
HISTORY: Shortness of breath Study: Single view chest Comparison: 03/24/2019 Findings: Lungs are hyperinflated with improved aeration compared to yesterday. There are chronic emphysematous changes present with trace bilateral effusions. Normal-sized heart. No pneumothorax. The soft tissues are intact. IMPRESSION: 1. Improving aeration of the lungs with trace bilateral effusions. Reported By:
[2019-03-25] MEDS: MILK OF MAGNESIA PO SCH ×2 (09:32→21:24)
[2019-03-25] MEDS: CARDIZEM CD 180 MG PO SCH (09:33)
[2019-03-25] MEDS: VSL#3 PO SCH (09:33)
[2019-03-25] MEDS: PROzac PO SCH (09:33)
[2019-03-25] MEDS: LOVENOX INJ 30 MG SYR SC SCH (09:33)
[2019-03-25] MEDS: LEVAQUIN PREMIX IV 250 MG 250 MG/50 ML BAG IV SCH (09:34)
[2019-03-25] MEDS: PROTONIX INJ 40 MG VIAL IVP SCH (09:34)
[2019-03-25] MEDS: FORTAZ or TAZICEF VIAL INJ IVP SCH ×2 (09:35→21:24)
[2019-03-25] MEDS: LASIX IVP SCH (09:35)
[2019-03-25] MEDS ORDERED: NS 1/2 1000 ML IV 1,000 ML ONE (10:15)
[2019-03-25] MEDS: NS 1/2 1000 ML IV 1,000 ML IV SCH (10:17)
[2019-03-25] MEDS: PULMICORT NEB TX 0.5 MG NEB SCH ×2 (11:43→20:26)
[2019-03-25] MEDS ORDERED: NYSTATIN SUSP ONE (14:30)
[2019-03-25] MEDS: NYSTATIN SUSP PO SCH ×3 (14:36→21:25)
--- NOTE | 2019-03-25 20:06 | PCM.PROG ---
Progress Note - Progress Note for Day of Date of Exam: 03/24/19 - Subjective Subjective: IS BEING TREATED FOR RESPIRATORY FAILURE WITH HYPOXIA AND HYPERCAPNIA, COPD WITH ACUTE BRONCHITIS, AND TACHYCARDIA. TODAY, SHE IS ALERT AND ORIENTED, SITTING UP IN BED ON MORNING ROUNDS. SHE IS CURRENTLY WEARING OXYGEN VIA NASAL CANNULA. FAMILY REPORTS THAT SHE HAS BEEN LESS ANXIOUS TODAY. ON EXAMINATION, HEART IS REGULAR IN RATE AND RHYTHM. BILATERAL LUNGS ARE NOTED WITH SCATTERED WHEEZING. ABDOMEN IS FLAT, SOFT, AND NON-TENDER WITH NORMAL BOWEL SOUNDS NOTED IN ALL QUADRANTS. HER VITALS THIS MORNING ARE: 98.6-97-22-95%-130/98. LABS WERE OBTAINED. ABNORMAL LAB VALUES INCLUDE THE FOLLOWING: WBC 11.6, HGB 1.4, HCT 34.5, PLT COUNT 131, CARBON DIOXIDE 19.4, BUN 28, CREATININE 1.82, GLUCOSE 184, CALCIUM 7.9, MAGNESIUM 1.6, AST 117, TOTAL PROTEIN 6.3, ALBUMIN 2.8. ABG OBTAINED AND REVEALED: PH 7.390, PC02 36.0, P02 74.0, HC03 21.8, 02 SATURATION, BASE EXCESS -2.7. A CHEST XRAY WAS OBTAINED AND REVEALED: CHF/volume overload with increased bilateral pleural effusions and adjacent atelectasis or infiltrate. SHE IS CURRENTLY RECEIVING IV ANTIBIOTICS, RESPIRATORY TREATMENTS, MORPHINE 1mg IV Q4H, LASIX 20MG IV BID, PROZAC 20MG PO DAILY, VALIUM 5MG PO Q8H GUILLERMO. SHE WILL CONTINUE TO UTILIZE THE BIPAP AND SUPPLEMENTAL OXYGEN. WE WILL ADMINISTER AN ADDITIONAL DOSE OF LASIX TODAY. OT HERWISE, WE WILL OBTAIN LABS, CHEST XRAY, AND ABG IN THE MORNING. - Past Medical Family Social History Past Med/Fam/Surg Hx: No changes since H&P Allergies: Allergies No Known Drug Allergies Allergy (Verified 03/21/19 21:53) - Review of Systems ROS: No change since H&P - Vital Signs and I&O's Vital Signs: Temperature 98.8 F Pulse Rate 90 Respiratory Rate 22 Blood Pressure 128/60 O2 Sat by Pulse Oximetry 94 Intake and Output: Intake & Output 03/23/19 03/24/19 03/25/19 03/26/19 11:59 11:59 11:59 11:59 Intake Total 2224 / 2224 3107 / 3107 2740 / 2740 1250 / 1250 Output Total 700 / 700 2475 / 2475 2400 / 2400 300 / 300 Balance 1524 / 1524 632 / 632 340 / 340 950 / 950 - Physical Exam Oriented: Normal Eyes: Normal Ear: Normal Nose: Normal Throat: Normal Respiratory: Generalized, Wheezes Cardiovascular: Normal. negative: S3, S4, Murmur : Normal Auscultation: Bowel Sounds: Normal Palpation: Normal Tenderness: Normal Skin: Normal Musculoskeletal: Normal Psychiatric: Anxiety Mood Description: Anxious Affect: Anxious Speech Pattern: Clear, Appropriate - Laboratory and Diagnostics Result Diagrams: 03/25/19 04:10 03/25/19 04:10 Labs: Laboratory WBC 13.3 X10^3/uL (3.6-10.0) H 03/25/19 04:10 RBC 3.83 X10^6/uL (3.5-5.4) 03/25/19 04:10 Hgb 11.7 g/dL (12.0-16.0) L 03/25/19 04:10 Hct 35.4 % (36.0-47.0) L 03/25/19 04:10 MCV 92.4 fL (80.0-100.0) 03/25/19 04:10 MCH 30.4 pg (27.0-34.0) 03/25/19 04:10 MCHC 32.9 g/dL (33.0-35.0) L 03/25/19 04:10 RDW 15.9 % (11.6-16.5) 03/25/19 04:10 Plt Count 121 X10^3/uL (150.0-450.0) L 03/25/19 04:10 Plt Count Comment Decreased (ADEQUATE) A 03/25/19 04:10 MPV 10.7 fL (7.4-11.0) 03/25/19 04:10 Neut % (Auto) 92.7 % (42.0-75.0) H 03/25/19 04:10 Lymph % (Auto) 1.3 % (21.0-51.0) L 03/25/19 04:10 [place] % (Auto) 5.9 % (0.0-13.0) 03/25/19 04:10 Eos % (Auto) 0.0 % (0.9-2.9) L 03/25/19 04:10 Baso % (Auto) 0.1 % (0.2-1.0) L 03/25/19 04:10 Neut # (Auto) 12.3 x10^3/uL (2.2-4.8) H 03/25/19 04:10 Lymph # (Auto) 0.2 X10^3/uL (1.3-2.9) L 03/25/19 04:10 [place] # (Auto) 0.8 x10^3/uL (0.3-0.8) 03/25/19 04:10 Eos # (Auto) 0.0 x10^3/uL (0.0-0.2) 03/25/19 04:10 Baso # (Auto) 0.0 X10^3/uL (0.0-0.1) 03/25/19 04:10 Absolute Nucleated RBC 0.1 /100WBC 03/25/19 04:10 Total Counted 100 03/25/19 04:10 Neutrophils % (Manual) 95 % (39-76) H 03/25/19 04:10 Lymphocytes % (Manual) 3 % (13-43) L 03/25/19 04:10 Monocytes % (Manual) 2 % (4-9) L 03/25/19 04:10 Plt Morphology Comment Normal (NORMAL) 03/25/19 04:10 RBC Morphology Normal (NORMAL) 03/25/19 04:10 Sample Site Rra 03/25/19 06:42 ABG pH 7.470 (7.35-7.45) H 03/25/19 06:42 ABG pCO2 41.0 mmHg (35.0-45.0) 03/25/19 06:42 ABG pO2 82.0 mmHg (80.0-100.0) 03/25/19 06:42 ABG HCO3 29.8 mmol/L (22-26) H 03/25/19 06:42 ABG O2 Saturation 97.0 % (90-100) 03/25/19 06:42 ABG Base Excess 5.6 mmol/L (-2.0-2.0) H 03/25/19 06:42 Av Test Pos 03/25/19 06:42 A-a Gradient 66.0 mmHg 03/25/19 06:42 FiO2 28.0 03/25/19 06:42 Blood Gas Comments Pt toll well eb 03/25/19 06:42 Sodium 141 mmol/L (136-145) 03/25/19 04:10 Corrected Sodium 146 mmol/L (136-145) H 03/25/19 04:10 Potassium 3.3 mmol/L (3.5-5.1) L 03/25/19 04:10 Chloride 103 mmol/L (98-107) 03/25/19 04:10 Carbon Dioxide 26.0 mmol/L (21-32) 03/25/19 04:10 BUN 33 mg/dL (7-18) H 03/25/19 04:10 Creatinine 1.99 mg/dL (0.55-1.02) H 03/25/19 04:10 Est GFR (MDRD) Af Amer 31 (>60) L 03/25/19 04:10 Est GFR (MDRD) Non-Af 26 (>60) L 03/25/19 04:10 Glucose 297 mg/dL (65-99) H 03/25/19 04:10 Calcium 8.0 mg/dL (8.5-10.1) L 03/25/19 04:10 Corrected Calcium 9.0 mg/dL (8.5-10.1) 03/25/19 04:10 Magnesium 1.6 mg/dL (1.7-2.9) L 03/24/19 04:02 Total Bilirubin 0.40 mg/dL (0.2-1.0) 03/25/19 04:10 AST 95 Units/L (15-37) H 03/25/19 04:10 ALT 44 Units/L (12-78) 03/25/19 04:10 Alkaline Phosphatase 57 Units/L (46-116) 03/25/19 04:10 Creatine Kinase 60 Units/L (26-192) 03/22/19 06:28 CK-MB (CK-2) 1.9 ng/mL (0-4.0) 03/22/19 06:28 CK/CKMB % Calc 3.2 % (<4) 03/22/19 06:28 Troponin I 0.22 ng/mL (0-1.5) 03/22/19 06:28 Total Protein 6.5 g/dL (6.4-8.2) 03/25/19 04:10 Albumin 2.8 g/dL (3.4-5.0) L 03/25/19 04:10 Globulin 3.7 g/dL (2.5-4.5) 03/25/19 04:10 Albumin/Globulin Ratio 0.8 Ratio (1.1-2.1) L 03/25/19 04:10 Specimen Type Catherized urine 03/21/19 21:10 Urine Color Yellow (YELLOW) 03/21/19 21:10 Urine Appearance Slightly hazy (CLEAR) 03/21/19 21:10 Urine pH 6.0 (5.0 - 8.0) 03/21/19 21:10 Ur Specific [place] 1.010 (1.000-1.030) 03/21/19 21:10 Urine Protein 2+ (NEGATIVE) 03/21/19 21:10 Urine Glucose (UA) Negative (NEGATIVE) 03/21/19 21:10 Urine Ketones 1+ (NEGATIVE) 03/21/19 21:10 Urine Occult Blood 1+ (NEGATIVE) 03/21/19 21:10 Urine Nitrite Negative (NEGATIVE) 03/21/19 21:10 Urine Bilirubin Negative (NEGATIVE) 03/21/19 21:10 Urine Urobilinogen Normal (NORMAL) 03/21/19 21:10 Ur Leukocyte Esterase Negative (NEGATIVE) 03/21/19 21:10 Urine RBC 3-5 /HPF (NONE SEEN) 03/21/19 21:10 Urine WBC None seen /HPF (NONE SEEN) 03/21/19 21:10 Ur Squamous Epith Cells Rare /HPF (NEGATIVE) 03/21/19 21:10 Amorphous Sediment 2+ /HPF (NEGATIVE) 03/21/19 21:10 Urine Bacteria Trace /HPF (NEGATIVE) 03/21/19 21:10 Hyaline Casts Rare /LPF (NEGATIVE) 03/21/19 21:10 Ur Culture Indicated? 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
[2019-03-25] MEDS: SNACK - Diabetic Appropriate PO SCH (20:35)
[2019-03-25] MEDS: COLACE CAP 100 MG PO SCH (21:25)
[2019-03-26] MEDS: DUONEB 0.5 MG/3 MG NEB SCH ×6 (00:53→20:36)
[2019-03-26] MEDS: MORPHINE SULFATE INJ 2 MG INJ IVP SCH ×6 (05:10→21:07)
[2019-03-26] MEDS: VALIUM PO SCH ×4 (05:11→21:07)
[2019-03-26] MEDS: NS 1/2 1000 ML IV 1,000 ML IV SCH ×2 (05:12→05:13)
[2019-03-26 05:42] LABS: BASOPHILS % (AUTO) 0.2 % (0.2-1.0); HEMATOCRIT 36.8 % (36.0-47.0); HEMOGLOBIN 12.1 g/dL (12.0-16.0); LYMPHOCYTES # (AUTO) 0.2 X10^3/uL (1.3-2.9); LYMPHOCYTES % (AUTO) 1.5 % (21.0-51.0); MEAN CORPUSCULAR HEMOGLOBIN 30.1 pg (27.0-34.0); MEAN CORPUSCULAR HGB CONC 32.9 g/dL (33.0-35.0); MEAN CORPUSCULAR VOLUME 91.6 fL (80.0-100.0); MEAN PLATELET VOLUME 10.5 fL (7.4-11.0); MONOCYTES # (AUTO) 1.4 x10^3/uL (0.3-0.8); MONOCYTES % (AUTO) 9.7 % (0.0-13.0); NEUTROPHILS # (AUTO) 12.7 x10^3/uL (2.2-4.8); NEUTROPHILS % (AUTO) 88.6 % (42.0-75.0); PLATELET COUNT 120 X10^3/uL (150.0-450.0); RED BLOOD COUNT 4.01 X10^6/uL (3.5-5.4); RED CELL DISTRIBUTION WIDTH 16.3 % (11.6-16.5); WHITE BLOOD COUNT 14.3 X10^3/uL (3.6-10.0)
[2019-03-26 06:04] LABS: ALBUMIN 2.7 g/dL (3.4-5.0); CALCIUM 7.9 mg/dL (8.5-10.1); CARBON DIOXIDE 27.6 mmol/L (21-32); COR CA(FOR HYPOALB) 8.9 mg/dL (8.5-10.1); CREATININE 1.95 mg/dL (0.55-1.02); TOTAL PROTEIN 6.5 g/dL (6.4-8.2)
--- NOTE | 2019-03-26 06:11 | RAD ---
History: Shortness of breath Comparison: 03/25/2019. Findings: There is stable cardiomegaly and pulmonary vasculature congestion. Small bibasilar pleural parenchymal opacities appears slightly increased from prior study. No evidence of pneumothorax. Conclusion: Increased bibasilar pleural effusions and adjacent atelectasis. Reported By:
[2019-03-26] MEDS ORDERED: NS 1/2 1000 ML IV 1,000 ML ONE (06:39)
[2019-03-26] MEDS: HumuLIN R SUBCUT PRN ×2 (06:57→11:41)
[2019-03-26] MEDS: PULMICORT NEB TX 0.5 MG NEB SCH ×2 (08:30→20:36)
[2019-03-26] MEDS: CARDIZEM CD 180 MG PO SCH (09:17)
[2019-03-26] MEDS: FORTAZ or TAZICEF VIAL INJ IVP SCH ×2 (09:17→21:05)
[2019-03-26] MEDS: MILK OF MAGNESIA PO SCH ×5 (09:21→21:05)
[2019-03-26] MEDS: LEVAQUIN PREMIX IV 250 MG 250 MG/50 ML BAG IV SCH (09:21)
[2019-03-26] MEDS: LOVENOX INJ 30 MG SYR SC SCH (09:21)
[2019-03-26] MEDS: NYSTATIN SUSP PO SCH ×4 (09:21→21:05)
[2019-03-26] MEDS: PROTONIX INJ 40 MG VIAL IVP SCH (09:22)
[2019-03-26] MEDS: VSL#3 PO SCH (09:22)
[2019-03-26] MEDS ORDERED: COLACE CAP 100 MG PO SCH (10:00)
[2019-03-26] MEDS: ALBUMIN HUMAN 25%- 100 ML 100 ML IV SCH (10:42)
[2019-03-26] MEDS: COLACE SYRUP 100 MG UDC PO SCH ×2 (10:43→21:04)
[2019-03-26] MEDS: MIRALAX POWDER (1 DOSE 17 G) PO SCH (10:43)
--- NOTE | 2019-03-26 14:43 | RAD ---
HISTORY: Abdominal pain. Medical history of diabetes, hypertension, ND, COPD. Surgical history of colon resection. Study: KUB Comparison: No priors Findings: There is large amount of stool present descending colon. Small amount of stool is seen in the rectosigmoid. No bowel obstruction seen. There are calcifications overlying the left kidney. These may represent stone material or may be vascular. No calcifications are seen on right. There is fairly heavy calcification seen within the howe of the aorta and iliac arteries. There is multilevel lumbar spondylosis. IMPRESSION: No evidence of bowel obstruction . Calcifications overlying the left kidney which may represent kidney stones or may be vascular. Reported By:
--- NOTE | 2019-03-26 16:59 | PCM.PROG ---
Progress Note - Progress Note for Day of Date of Exam: 03/25/19 - Subjective Subjective: IS BEING TREATED FOR RESPIRATORY FAILURE WITH HYPOXIA AND HYPERCAPNIA, COPD WITH ACUTE BRONCHITIS, AND TACHYCARDIA. TODAY, SHE IS ALERT AND ORIENTED, SITTING UP IN BED ON MORNING ROUNDS. SHE IS CURRENTLY WEARING OXYGEN VIA NASAL CANNULA. FAMILY REPORTS THAT SHE HAS BEEN LESS ANXIOUS AND LESS SHORT OF BREATH YESTERDAY AFTERNOON AND TODAY. STAFF REPORTED THAT HER HEART RATE DID INCREASE TO THE 140s YESTERDAY AFTERNOON. SHE WAS STARTED ON CARDIZEM 180MG PO DAILY FOR THAT. ON EXAMINATION, HEART IS REGULAR IN RATE AND RHYTHM. BILATERAL LUNGS CONTINUE WITH SCATTERED WHEEZING. ABDOMEN IS FLAT, SOFT, AND NON-TENDER WITH NORMAL BOWEL SOUNDS NOTED IN ALL QUADRANTS. HER VITALS THIS MORNING ARE: 97.2-73-15-97%-125/58. LABS WERE OBTAINED. ABNORMAL LAB VALUES INCLUDE THE FOLLOWING: WBC 13.3, HGB 11.7, HCT 3.4, PLT COUNT 121, CORRECTED SODIUM 146, POTASSIUM 3.3, BUN 33, CREATININE 1.99, GLUCOSE 297, CALCIUM 8.0, AST 95, ALBUMIN 2.8. ABG WAS OBTAINED AND REVEALED: PH 7.470, PC02 41.0, P02 82.0, HC03 29.8, 02 SATURATION 97.0, BASE EXCESS 5.6. A CHEST XRAY WAS OBTAINED AND REVEALED: Increased bibasilar pleural effusions and adjacent atelectasis. SHE IS CURRENTLY RECEIVING IV ANTIBIOTICS, RESPIRATORY TREATMENTS, MORPHINE 1mg IV Q4H, LASIX 20MG IV BID, PROZAC 20MG PO DAILY, VALIUM 5MG PO Q8H GUILLERMO. SHE WILL CONTINUE TO UTILIZE THE BIPAP AND SUPPLEMENTAL OXYGEN. WE WILL HOLD HER LASIX T KRISHNA DUE TO INCREASE CREATININE AND ORDER 1/2NS AT 50ML/HR. OTHERWISE, WE WILL FOLLOW UP WITH AM LABS AND CHEST XRAY AND CONTINUE TO MONITOR. - Past Medical Family Social History Past Med/Fam/Surg Hx: No changes since H&P Allergies: Allergies No Known Drug Allergies Allergy (Verified 03/21/19 21:53) - Review of Systems ROS: No change since H&P - Vital Signs and I&O's Vital Signs: Temperature 98.7 F Pulse Rate 83 Respiratory Rate 24 Blood Pressure 122/56 O2 Sat by Pulse Oximetry 100 Intake and Output: Intake & Output 03/24/19 03/25/19 03/26/19 03/27/19 11:59 11:59 11:59 11:59 Intake Total 3107 / 3107 2740 / 2740 2252 / 2252 450 / 450 Output Total 2475 / 2475 2400 / 2400 650 / 650 Balance 632 / 632 340 / 340 1602 / 1602 450 / 450 - Physical Exam Oriented: Normal Eyes: Normal Ear: Normal Nose: Normal Throat: Normal Respiratory: Generalized, Wheezes Cardiovascular: Normal. negative: S3, S4, Murmur : Normal Auscultation: Bowel Sounds: Normal Palpation: Normal Tenderness: Normal Skin: Normal Musculoskeletal: Normal Psychiatric: Anxiety Mood Description: Anxious Affect: Anxious Speech Pattern: Clear, Appropriate - Laboratory and Diagnostics Result Diagrams: 03/26/19 05:13 03/26/19 05:13 Labs: Laboratory WBC 14.3 X10^3/uL (3.6-10.0) H 03/26/19 05:13 RBC 4.01 X10^6/uL (3.5-5.4) 03/26/19 05:13 Hgb 12.1 g/dL (12.0-16.0) 03/26/19 05:13 Hct 36.8 % (36.0-47.0) 03/26/19 05:13 MCV 91.6 fL (80.0-100.0) 03/26/19 05:13 MCH 30.1 pg (27.0-34.0) 03/26/19 05:13 MCHC 32.9 g/dL (33.0-35.0) L 03/26/19 05:13 RDW 16.3 % (11.6-16.5) 03/26/19 05:13 Plt Count 120 X10^3/uL (150.0-450.0) L 03/26/19 05:13 Plt Count Comment Decreased (ADEQUATE) A 03/25/19 04:10 MPV 10.5 fL (7.4-11.0) 03/26/19 05:13 Neut % (Auto) 88.6 % (42.0-75.0) H 03/26/19 05:13 Lymph % (Auto) 1.5 % (21.0-51.0) L 03/26/19 05:13 [place] % (Auto) 9.7 % (0.0-13.0) 03/26/19 05:13 Eos % (Auto) 0.0 % (0.9-2.9) L 03/26/19 05:13 Baso % (Auto) 0.2 % (0.2-1.0) 03/26/19 05:13 Neut # (Auto) 12.7 x10^3/uL (2.2-4.8) H 03/26/19 05:13 Lymph # (Auto) 0.2 X10^3/uL (1.3-2.9) L 03/26/19 05:13 [place] # (Auto) 1.4 x10^3/uL (0.3-0.8) H 03/26/19 05:13 Eos # (Auto) 0.0 x10^3/uL (0.0-0.2) 03/26/19 05:13 Baso # (Auto) 0.0 X10^3/uL (0.0-0.1) 03/26/19 05:13 Absolute Nucleated RBC 0.0 /100WBC 03/26/19 05:13 Total Counted 100 03/25/19 04:10 Neutrophils % (Manual) 95 % (39-76) H 03/25/19 04:10 Lymphocytes % (Manual) 3 % (13-43) L 03/25/19 04:10 Monocytes % (Manual) 2 % (4-9) L 03/25/19 04:10 Plt Morphology Comment Normal (NORMAL) 03/25/19 04:10 RBC Morphology Normal (NORMAL) 03/25/19 04:10 Sample Site Rra 03/25/19 06:42 ABG pH 7.470 (7.35-7.45) H 03/25/19 06:42 ABG pCO2 41.0 mmHg (35.0-45.0) 03/25/19 06:42 ABG pO2 82.0 mmHg (80.0-100.0) 03/25/19 06:42 ABG HCO3 29.8 mmol/L (22-26) H 03/25/19 06:42 ABG O2 Saturation 97.0 % (90-100) 03/25/19 06:42 ABG Base Excess 5.6 mmol/L (-2.0-2.0) H 03/25/19 06:42 Av Test Pos 03/25/19 06:42 A-a Gradient 66.0 mmHg 03/25/19 06:42 FiO2 28.0 03/25/19 06:42 Blood Gas Comments Pt toll well eb 03/25/19 06:42 Sodium 137 mmol/L (136-145) 03/26/19 05:13 Corrected Sodium 142 mmol/L (136-145) 03/26/19 05:13 Potassium 4.9 mmol/L (3.5-5.1) 03/26/19 05:13 Chloride 102 mmol/L (98-107) 03/26/19 05:13 Carbon Dioxide 27.6 mmol/L (21-32) 03/26/19 05:13 BUN 44 mg/dL (7-18) H 03/26/19 05:13 Creatinine 1.95 mg/dL (0.55-1.02) H 03/26/19 05:13 Est GFR (MDRD) Af Amer 32 (>60) L 03/26/19 05:13 Est GFR (MDRD) Non-Af 26 (>60) L 03/26/19 05:13 Glucose 295 mg/dL (65-99) H 03/26/19 05:13 Calcium 7.9 mg/dL (8.5-10.1) L 03/26/19 05:13 Corrected Calcium 8.9 mg/dL (8.5-10.1) 03/26/19 05:13 Magnesium 5.6 mg/dL (1.7-2.9) H 03/26/19 05:13 Total Bilirubin 0.40 mg/dL (0.2-1.0) 03/26/19 05:13 AST 52 Units/L (15-37) H 03/26/19 05:13 ALT 38 Units/L (12-78) 03/26/19 05:13 Alkaline Phosphatase 67 Units/L (46-116) 03/26/19 05:13 Creatine Kinase 60 Units/L (26-192) 03/22/19 06:28 CK-MB (CK-2) 1.9 ng/mL (0-4.0) 03/22/19 06:28 CK/CKMB % Calc 3.2 % (<4) 03/22/19 06:28 Troponin I 0.22 ng/mL (0-1.5) 03/22/19 06:28 Total Protein 6.5 g/dL (6.4-8.2) 03/26/19 05:13 Albumin 2.7 g/dL (3.4-5.0) L 03/26/19 05:13 Globulin 3.8 g/dL (2.5-4.5) 03/26/19 05:13 Albumin/Globulin Ratio 0.7 Ratio (1.1-2.1) L 03/26/19 05:13 Specimen Type Catherized urine 03/21/19 21:10 Urine Color Yellow (YELLOW) 03/21/19 21:10 Urine Appearance Slightly hazy (CLEAR) 03/21/19 21:10 Urine pH 6.0 (5.0 - 8.0) 03/21/19 21:10 Ur Specific [place] 1.010 (1.000-1.030) 03/21/19 21:10 Urine Protein 2+ (NEGATIVE) 03/21/19 21:10 Urine Glucose (UA) Negative (NEGATIVE) 03/21/19 21:10 Urine Ketones 1+ (NEGATIVE) 03/21/19 21:10 Urine Occult Blood 1+ (NEGATIVE) 03/21/19 21:10 Urine Nitrite Negative (NEGATIVE) 03/21/19 21:10 Urine Bilirubin Negative (NEGATIVE) 03/21/19 21:10 Urine Urobilinogen Normal (NORMAL) 03/21/19 21:10 Ur Leukocyte Esterase Negative (NEGATIVE) 03/21/19 21:10 Urine RBC 3-5 /HPF (NONE SEEN) 03/21/19 21:10 Urine WBC None seen /HPF (NONE SEEN) 03/21/19 21:10 Ur Squamous Epith Cells Rare /HPF (NEGATIVE) 03/21/19 21:10 Amorphous Sediment 2+ /HPF (NEGATIVE) 03/21/19 21:10 Urine Bacteria Trace /HPF (NEGATIVE) 03/21/19 21:10 Hyaline Casts Rare /LPF (NEGATIVE) 03/21/19 21:10 Ur Culture Indicated? 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
--- NOTE | 2019-03-26 19:27 | PCM.PROG ---
Progress Note - Progress Note for Day of Date of Exam: 03/26/19 - Subjective Subjective: IS BEING TREATED FOR RESPIRATORY FAILURE WITH HYPOXIA AND HYPERCAPNIA, COPD WITH ACUTE BRONCHITIS, AND TACHYCARDIA. TACHYCARDIA HAS RESOLVED WITH THE PO CARDIZEM THAT WAS STARTED. TODAY, SHE IS ALERT AND ORIENTED, SITTING UP IN BED ON MORNING ROUNDS. SHE IS CURRENTLY WEARING OXYGEN VIA NASAL CANNULA. SHE REPORTS INCREASED WEAKNESS, SHORTNESS OF BREATH, AND ALSO REPORTS DIFFUSE ABDOMINAL PAIN THIS MORNING. SHE CONTINUES WITH DIFFICULTY SWALLOWING. ON EXAMINATION, HEART IS REGULAR IN RATE AND RHYTHM. BILATERAL LUNGS CONTINUE WITH SCATTERED WHEEZING. ABDOMEN IS FLAT, SOFT, AND NOTED WITH DIFFUSE TENDERNESS TO PALPATION. HYPOACTIVE BOWEL SOUNDS ARE NOTED. HER VITALS THIS MORNING ARE: 98.1-76-27-92%NC-120/58. LABS WERE OBTAINED. ABNORMAL LAB VALUES INCLUDE THE FOLLOWING: WBC 14.3, PLT COUNT 120, CALCIUM 7.9, BUN 44, CREATININE 1.95, GLUCOSE 295, AST 52, ALBUMIN 2.7. CHEST XRAY WAS OBTAINED AND REVEALED: Increased bibasilar pleural effusions and adjacent atelectasis. SHE IS CURRENTLY RECEIVING IV ANTIBIOTICS, RESPIRATORY TREATMENTS, MORPHINE 1mg IV Q4H, LASIX 20MG IV BID, PROZAC 20MG PO DAILY, VALIUM 5MG PO Q8H GUILLERMO. SHE WILL CONTINUE TO UTILIZE THE BIPAP AND SUPPLEMENTAL OXYGEN. TODAY, WE WILL RESUME LASIX 20MG IV BID AND HL IV FLUIDS. WE WILL OBTAIN A KUB, A MODIFIED BARIUM SWALLOW, AND WILL START ALBUMIN 25% IV DAILY. OTHERWISE, WE WILL FOLLOW UP WITH AM LABS AND CHEST XRAY AND CONTINUE TO MONITOR. - Past Medical Family Social History Past Med/Fam/Surg Hx: No changes since H&P Allergies: Allergies No Known Drug Allergies Allergy (Verified 03/21/19 21:53) - Review of Systems ROS: No change since H&P - Vital Signs and I&O's Vital Signs: Temperature 98.7 F Pulse Rate 78 Respiratory Rate 22 Blood Pressure 129/60 O2 Sat by Pulse Oximetry 96 Intake and Output: Intake & Output 03/24/19 03/25/19 03/26/19 03/27/19 11:59 11:59 11:59 11:59 Intake Total 3107 / 3107 2740 / 2740 2252 / 2252 450 / 450 Output Total 2475 / 2475 2400 / 2400 650 / 650 Balance 632 / 632 340 / 340 1602 / 1602 450 / 450 - Physical Exam Oriented: Normal Eyes: Normal Ear: Normal Nose: Normal Throat: Normal Respiratory: Generalized, Wheezes Cardiovascular: Normal. negative: S3, S4, Murmur : Normal Auscultation: Bowel Sounds: Normal Palpation: Normal Tenderness: Normal Skin: Normal Musculoskeletal: Normal Psychiatric: Anxiety Mood Description: Anxious Affect: Anxious Speech Pattern: Clear, Appropriate - Laboratory and Diagnostics Result Diagrams: 03/26/19 05:13 03/26/19 05:13 Labs: Laboratory WBC 14.3 X10^3/uL (3.6-10.0) H 03/26/19 05:13 RBC 4.01 X10^6/uL (3.5-5.4) 03/26/19 05:13 Hgb 12.1 g/dL (12.0-16.0) 03/26/19 05:13 Hct 36.8 % (36.0-47.0) 03/26/19 05:13 MCV 91.6 fL (80.0-100.0) 03/26/19 05:13 MCH 30.1 pg (27.0-34.0) 03/26/19 05:13 MCHC 32.9 g/dL (33.0-35.0) L 03/26/19 05:13 RDW 16.3 % (11.6-16.5) 03/26/19 05:13 Plt Count 120 X10^3/uL (150.0-450.0) L 03/26/19 05:13 Plt Count Comment Decreased (ADEQUATE) A 03/25/19 04:10 MPV 10.5 fL (7.4-11.0) 03/26/19 05:13 Neut % (Auto) 88.6 % (42.0-75.0) H 03/26/19 05:13 Lymph % (Auto) 1.5 % (21.0-51.0) L 03/26/19 05:13 [place] % (Auto) 9.7 % (0.0-13.0) 03/26/19 05:13 Eos % (Auto) 0.0 % (0.9-2.9) L 03/26/19 05:13 Baso % (Auto) 0.2 % (0.2-1.0) 03/26/19 05:13 Neut # (Auto) 12.7 x10^3/uL (2.2-4.8) H 03/26/19 05:13 Lymph # (Auto) 0.2 X10^3/uL (1.3-2.9) L 03/26/19 05:13 [place] # (Auto) 1.4 x10^3/uL (0.3-0.8) H 03/26/19 05:13 Eos # (Auto) 0.0 x10^3/uL (0.0-0.2) 03/26/19 05:13 Baso # (Auto) 0.0 X10^3/uL (0.0-0.1) 03/26/19 05:13 Absolute Nucleated RBC 0.0 /100WBC 03/26/19 05:13 Total Counted 100 03/25/19 04:10 Neutrophils % (Manual) 95 % (39-76) H 03/25/19 04:10 Lymphocytes % (Manual) 3 % (13-43) L 03/25/19 04:10 Monocytes % (Manual) 2 % (4-9) L 03/25/19 04:10 Plt Morphology Comment Normal (NORMAL) 03/25/19 04:10 RBC Morphology Normal (NORMAL) 03/25/19 04:10 Sample Site Rra 03/25/19 06:42 ABG pH 7.470 (7.35-7.45) H 03/25/19 06:42 ABG pCO2 41.0 mmHg (35.0-45.0) 03/25/19 06:42 ABG pO2 82.0 mmHg (80.0-100.0) 03/25/19 06:42 ABG HCO3 29.8 mmol/L (22-26) H 03/25/19 06:42 ABG O2 Saturation 97.0 % (90-100) 03/25/19 06:42 ABG Base Excess 5.6 mmol/L (-2.0-2.0) H 03/25/19 06:42 Av Test Pos 03/25/19 06:42 A-a Gradient 66.0 mmHg 03/25/19 06:42 FiO2 28.0 03/25/19 06:42 Blood Gas Comments Pt toll well eb 03/25/19 06:42 Sodium 137 mmol/L (136-145) 03/26/19 05:13 Corrected Sodium 142 mmol/L (136-145) 03/26/19 05:13 Potassium 4.9 mmol/L (3.5-5.1) 03/26/19 05:13 Chloride 102 mmol/L (98-107) 03/26/19 05:13 Carbon Dioxide 27.6 mmol/L (21-32) 03/26/19 05:13 BUN 44 mg/dL (7-18) H 03/26/19 05:13 Creatinine 1.95 mg/dL (0.55-1.02) H 03/26/19 05:13 Est GFR (MDRD) Af Amer 32 (>60) L 03/26/19 05:13 Est GFR (MDRD) Non-Af 26 (>60) L 03/26/19 05:13 Glucose 295 mg/dL (65-99) H 03/26/19 05:13 Calcium 7.9 mg/dL (8.5-10.1) L 03/26/19 05:13 Corrected Calcium 8.9 mg/dL (8.5-10.1) 03/26/19 05:13 Magnesium 5.6 mg/dL (1.7-2.9) H 03/26/19 05:13 Total Bilirubin 0.40 mg/dL (0.2-1.0) 03/26/19 05:13 AST 52 Units/L (15-37) H 03/26/19 05:13 ALT 38 Units/L (12-78) 03/26/19 05:13 Alkaline Phosphatase 67 Units/L (46-116) 03/26/19 05:13 Creatine Kinase 60 Units/L (26-192) 03/22/19 06:28 CK-MB (CK-2) 1.9 ng/mL (0-4.0) 03/22/19 06:28 CK/CKMB % Calc 3.2 % (<4) 03/22/19 06:28 Troponin I 0.22 ng/mL (0-1.5) 03/22/19 06:28 Total Protein 6.5 g/dL (6.4-8.2) 03/26/19 05:13 Albumin 2.7 g/dL (3.4-5.0) L 03/26/19 05:13 Globulin 3.8 g/dL (2.5-4.5) 03/26/19 05:13 Albumin/Globulin Ratio 0.7 Ratio (1.1-2.1) L 03/26/19 05:13 Specimen Type Catherized urine 03/21/19 21:10 Urine Color Yellow (YELLOW) 03/21/19 21:10 Urine Appearance Slightly hazy (CLEAR) 03/21/19 21:10 Urine pH 6.0 (5.0 - 8.0) 03/21/19 21:10 Ur Specific [place] 1.010 (1.000-1.030) 03/21/19 21:10 Urine Protein 2+ (NEGATIVE) 03/21/19 21:10 Urine Glucose (UA) Negative (NEGATIVE) 03/21/19 21:10 Urine Ketones 1+ (NEGATIVE) 03/21/19 21:10 Urine Occult Blood 1+ (NEGATIVE) 03/21/19 21:10 Urine Nitrite Negative (NEGATIVE) 03/21/19 21:10 Urine Bilirubin Negative (NEGATIVE) 03/21/19 21:10 Urine Urobilinogen Normal (NORMAL) 03/21/19 21:10 Ur Leukocyte Esterase Negative (NEGATIVE) 03/21/19 21:10 Urine RBC 3-5 /HPF (NONE SEEN) 03/21/19 21:10 Urine WBC None seen /HPF (NONE SEEN) 03/21/19 21:10 Ur Squamous Epith Cells Rare /HPF (NEGATIVE) 03/21/19 21:10 Amorphous Sediment 2+ /HPF (NEGATIVE) 03/21/19 21:10 Urine Bacteria Trace /HPF (NEGATIVE) 03/21/19 21:10 Hyaline Casts Rare /LPF (NEGATIVE) 03/21/19 21:10 Ur Culture Indicated? No/not indicated 03/21/19 21:10 - Plan (1) Respiratory failure with hypoxia and hypercapnia Status: Acute Qualifiers: Chronicity: acute on chronic Qualified Code(s): J96.21 - Acute and chronic respiratory failure with hypoxia; J96.22 - Acute and chronic respiratory failure with hypercapnia Plan: BIPAP, LASIX, SUPPLEMENTAL OXYGEN, RESPIRATORY TX, IV ANTIBIOTICS, CONTINUE TO MONITOR (2) COPD with acute bronchitis Status: Acute Plan: BIPAP, SUPPLEMENTAL OXYGEN, RESPIRATORY TX, IV ANTIBIOTICS, CONTINUE TO MONITOR (3) Sustained SVT Status: Resolved Plan: CARDIZEM CD 180MG PO DAILY, SUPPLEMENTAL OXYGEN, FOOD ORDER EXPEDITER, 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 (5) Abdominal pain Status: Acute Qualifiers: Abdominal location: generalized Qualified Code(s): R10.84 - Generalized abdominal pain Plan: BOWEL REGIMEN, OBTAIN KUB, CONTINUE TO MONITOR
[2019-03-26] MEDS: SNACK - Diabetic Appropriate PO SCH (20:43)
[2019-03-26] MEDS: LASIX IVP SCH (21:05)
[2019-03-27] MEDS: DUONEB 0.5 MG/3 MG NEB SCH ×6 (01:07→20:24)
[2019-03-27] MEDS: MORPHINE SULFATE INJ 2 MG INJ IVP SCH ×3 (01:23→09:10)
[2019-03-27 05:05] LABS: BASOPHILS % (AUTO) 0.1 % (0.2-1.0); EOSINOPHILS % (AUTO) 0.1 % (0.9-2.9); HEMATOCRIT 35.9 % (36.0-47.0); HEMOGLOBIN 11.6 g/dL (12.0-16.0); LYMPHOCYTES # (AUTO) 0.4 X10^3/uL (1.3-2.9); LYMPHOCYTES % (AUTO) 3.5 % (21.0-51.0); MEAN CORPUSCULAR HEMOGLOBIN 29.9 pg (27.0-34.0); MEAN CORPUSCULAR HGB CONC 32.4 g/dL (33.0-35.0); MEAN CORPUSCULAR VOLUME 92.1 fL (80.0-100.0); MEAN PLATELET VOLUME 10.3 fL (7.4-11.0); MONOCYTES # (AUTO) 1.1 x10^3/uL (0.3-0.8); MONOCYTES % (AUTO) 9.3 % (0.0-13.0); NEUTROPHILS # (AUTO) 10.4 x10^3/uL (2.2-4.8); PLATELET COUNT 124 X10^3/uL (150.0-450.0); RED BLOOD COUNT 3.89 X10^6/uL (3.5-5.4)
[2019-03-27 05:21] LABS: ALBUMIN 3.1 g/dL (3.4-5.0); CALCIUM 7.6 mg/dL (8.5-10.1); CARBON DIOXIDE 31.4 mmol/L (21-32); COR CA(FOR HYPOALB) 8.3 mg/dL (8.5-10.1); CREATININE 2.01 mg/dL (0.55-1.02); TOTAL PROTEIN 6.6 g/dL (6.4-8.2)
[2019-03-27 05:23] LABS: ABG BASE EXCESS 12.2 mmol/L (-2.0-2.0)
[2019-03-27 05:25] LABS: ABG ALLEN TEST POS; ABG HCO3 37.8 mmol/L (22-26)
[2019-03-27] MEDS: VALIUM PO SCH (05:36)
[2019-03-27] MEDS: HumuLIN R SUBCUT PRN ×2 (05:37→17:14)
--- NOTE | 2019-03-27 06:16 | RAD ---
HISTORY: Shortness of breath Study: Chest AP portable Comparison: 03/26/2019 Findings: Patient is rotated slightly to the right. The heart is mildly enlarged. No definite congestive heart failure is present on today's examination. No definite acute alveolar infiltrates are present. Bibasilar interstitial lung changes are present, stable. Bilateral small pleural effusions are likely present right greater than left. The bony thorax is unremarkable. IMPRESSION: Mild cardiomegaly without congestive heart failure on today's examination Bibasilar interstitial lung changes, stable Small pleural effusions right greater than left unchanged Reported By:
[2019-03-27] MEDS: LEVAQUIN PREMIX IV 250 MG 250 MG/50 ML BAG IV SCH (08:30)
[2019-03-27] MEDS: FORTAZ or TAZICEF VIAL INJ IVP SCH ×2 (08:30→20:57)
[2019-03-27] MEDS: LASIX IVP SCH (08:30)
[2019-03-27] MEDS: LOVENOX INJ 30 MG SYR SC SCH (08:30)
[2019-03-27] MEDS: PULMICORT NEB TX 0.5 MG NEB SCH ×2 (08:35→20:24)
[2019-03-27] MEDS: CARDIZEM CD 180 MG PO SCH (09:08)
[2019-03-27] MEDS: ALBUMIN HUMAN 25%- 100 ML 100 ML IV SCH (09:08)
[2019-03-27] MEDS: COLACE SYRUP 100 MG UDC PO SCH (09:09)
[2019-03-27] MEDS: MIRALAX POWDER (1 DOSE 17 G) PO SCH (09:10)
[2019-03-27] MEDS: NYSTATIN SUSP PO SCH ×4 (09:10→20:58)
[2019-03-27] MEDS: MILK OF MAGNESIA PO SCH ×4 (09:10→20:57)
[2019-03-27] MEDS: PROTONIX INJ 40 MG VIAL IVP SCH (09:10)
[2019-03-27] MEDS: VSL#3 PO SCH (09:10)
[2019-03-27] MEDS ORDERED: COLACE SYRUP 100 MG UDC PO PRN (10:08)
[2019-03-27] MEDS ORDERED: ATIVAN INJ 2 MG VIAL IVP PRN (10:09)
[2019-03-27] MEDS: SNACK - Diabetic Appropriate PO SCH (20:56)
[2019-03-28] MEDS: DUONEB 0.5 MG/3 MG NEB SCH ×2 (00:49→04:34)
[2019-03-28 05:21] LABS: BASOPHILS % (AUTO) 0.2 % (0.2-1.0); EOSINOPHILS # (AUTO) 0.2 x10^3/uL (0.0-0.2); HEMATOCRIT 35.3 % (36.0-47.0); HEMOGLOBIN 11.8 g/dL (12.0-16.0); LYMPHOCYTES # (AUTO) 0.6 X10^3/uL (1.3-2.9); LYMPHOCYTES % (AUTO) 6.7 % (21.0-51.0); MEAN CORPUSCULAR HEMOGLOBIN 30.4 pg (27.0-34.0); MEAN CORPUSCULAR HGB CONC 33.4 g/dL (33.0-35.0); MEAN PLATELET VOLUME 9.8 fL (7.4-11.0); MONOCYTES # (AUTO) 0.9 x10^3/uL (0.3-0.8); MONOCYTES % (AUTO) 9.8 % (0.0-13.0); NEUTROPHILS # (AUTO) 7.2 x10^3/uL (2.2-4.8); NEUTROPHILS % (AUTO) 81.3 % (42.0-75.0); PLATELET COUNT 113 X10^3/uL (150.0-450.0); RED BLOOD COUNT 3.87 X10^6/uL (3.5-5.4); RED CELL DISTRIBUTION WIDTH 16.2 % (11.6-16.5); WHITE BLOOD COUNT 8.9 X10^3/uL (3.6-10.0)
[2019-03-28 05:34] LABS: CALCIUM 7.4 mg/dL (8.5-10.1); CARBON DIOXIDE 35.3 mmol/L (21-32); COR CA(FOR HYPOALB) 8.2 mg/dL (8.5-10.1); CREATININE 1.88 mg/dL (0.55-1.02); TOTAL PROTEIN 6.3 g/dL (6.4-8.2)
--- NOTE | 2019-03-28 06:03 | RAD ---
Chest radiograph, single AP view History: Shortness of breath Comparison: 03/27/2019. Findings: There is stable cardiomegaly without significant pulmonary vasculature congestion. There are stable bibasilar pleural parenchymal opacities. No evidence of pneumothorax. Conclusion: Stable examination with bibasilar pleural effusions, more pronounced on the right. Reported By:
[2019-03-28 07:53] LABS: ABG BASE EXCESS 17.4 mmol/L (-2.0-2.0)
[2019-03-28 07:55] LABS: ABG ALLEN TEST POS
[2019-03-28] MEDS: NYSTATIN SUSP PO SCH ×4 (08:32→20:48)
[2019-03-28] MEDS: LEVEMIR SC SCH (08:44)
[2019-03-28] MEDS: LOVENOX INJ 30 MG SYR SC SCH (08:45)
[2019-03-28] MEDS: XOPENEX 1.25 MG/3 ML NEBULE NEB SCH ×4 (09:24→20:45)
[2019-03-28] MEDS: PULMICORT NEB TX 0.5 MG NEB SCH ×2 (09:24→20:45)
[2019-03-28] MEDS: ALBUMIN HUMAN 25%- 100 ML 100 ML IV SCH (09:30)
[2019-03-28] MEDS: FORTAZ or TAZICEF VIAL INJ IVP SCH ×2 (09:30→20:47)
[2019-03-28] MEDS: LEVAQUIN PREMIX IV 250 MG 250 MG/50 ML BAG IV SCH (09:31)
[2019-03-28] MEDS: MILK OF MAGNESIA PO SCH ×4 (09:31→20:47)
[2019-03-28] MEDS: PROTONIX INJ 40 MG VIAL IVP SCH (09:32)
[2019-03-28] MEDS: CARDIZEM CD 180 MG PO SCH (09:32)
[2019-03-28] MEDS: HumuLIN R SUBCUT PRN ×2 (11:38→22:35)
[2019-03-28] MEDS ORDERED: XOPENEX 1.25 MG/3 ML NEBULE NEB SCH (12:00)
[2019-03-28] MEDS: MIRALAX POWDER (1 DOSE 17 G) PO SCH (16:47)
--- NOTE | 2019-03-28 19:58 | PCM.PROG ---
Progress Note - Progress Note for Day of Date of Exam: 03/27/19 - Subjective Subjective: IS BEING TREATED FOR RESPIRATORY FAILURE WITH HYPOXIA AND HYPERCAPNIA AND COPD WITH ACUTE BRONCHITIS. TODAY, SHE IS ALERT AND ORIENTED, SITTING UP IN BED ON MORNING ROUNDS. SHE IS CURRENTLY WEARING OXYGEN VIA NASAL CANNULA. SHE REPORTS NO CHANGE IN SYMPTOMS SINCE YESTERDAY. SHE CONTINUES WITH MODERATE SHORTNESS OF BREAHT. ON EXAMINATION, HEART IS REGULAR IN RATE AND RHYTHM. BILATERAL LUNGS CONTINUE WITH SCATTERED WHEEZING. ABDOMEN IS FLAT, SOFT, AND NOTED WITH DIFFUSE TENDERNESS TO PALPATION. HYPOACTIVE BOWEL SOUNDS ARE NOTED. HER VITALS THIS MORNING ARE: 98.0-91-14-96%-121/59. LABS WERE OBTAINED. ABNORMAL LAB VALUES INCLUDE THE FOLLOWING: WBC 12.0, HGB 11.6, HCT 35.9, PLT COUNT 124, BUN 50, CREATININE 2.01, GLUCOSE 307, CALCIUM 7.6, AST 39, ALBUMIN 3.1. CHEST XRAY WAS OBTAINED AND REVEALED: Mild cardiomegaly without congestive heart failure on today's examination. Bibasilar interstitial lung changes, stable. Small pleural effusions right greater than left unchanged. SHE IS CURRENTLY RECEIVING IV ANTIBIOTICS, RESPIRATORY TREATMENTS, MORPHINE 1mg IV Q4H, LASIX 20MG IV BID, 5MG PO Q8H GUILLERMO. TODAY, WE WILL CHANGE VALIUM TO ATIVAN PRN AND MAKE MORPHINE PRN. WE WILL ADD LANTUS 5MG PO DAILY. OTHERWISE, WE WILL FOLLOW UP WITH AM LABS AND CHEST XRAY AND CONTINUE TO MONITOR. - Past Medical Family Social History Past Med/Fam/Surg Hx: No changes since H&P Allergies: Allergies No Known Drug Allergies Allergy (Verified 03/21/19 21:53) - Review of Systems ROS: No change since H&P - Vital Signs and I&O's Vital Signs: Temperature 98.8 F Pulse Rate 99 Respiratory Rate 15 Blood Pressure 123/60 O2 Sat by Pulse Oximetry 96 Intake and Output: Intake & Output 03/26/19 03/27/19 03/28/19 03/29/19 11:59 11:59 11:59 11:59 Intake Total 2252 / 2252 930 / 930 720 / 720 200 / 200 Output Total 650 / 650 1999 / 1999 2650 / 2650 750 / 750 Balance 1602 / 1602 -1070 / -1070 -1930 / -1930 -550 / -550 - Physical Exam Oriented: Normal Eyes: Normal Ear: Normal Nose: Normal Throat: Normal Respiratory: Generalized, Wheezes Cardiovascular: Normal. negative: S3, S4, Murmur : Normal Auscultation: Bowel Sounds: Normal Tenderness: Normal Skin: Normal Musculoskeletal: Normal Psychiatric: Anxiety Mood Description: Anxious Affect: Anxious Speech Pattern: Clear, Appropriate - Laboratory and Diagnostics Result Diagrams: 03/28/19 04:27 03/28/19 04:27 Labs: 03/26/19 09:00 Blood Blood Culture - Preliminary 03/26/19 08:55 Blood Blood Culture - Preliminary Laboratory WBC 8.9 X10^3/uL (3.6-10.0) 03/28/19 04:27 RBC 3.87 X10^6/uL (3.5-5.4) 03/28/19 04:27 Hgb 11.8 g/dL (12.0-16.0) L 03/28/19 04:27 Hct 35.3 % (36.0-47.0) L 03/28/19 04:27 MCV 91.0 fL (80.0-100.0) 03/28/19 04:27 MCH 30.4 pg (27.0-34.0) 03/28/19 04:27 MCHC 33.4 g/dL (33.0-35.0) 03/28/19 04:27 RDW 16.2 % (11.6-16.5) 03/28/19 04:27 Plt Count 113 X10^3/uL (150.0-450.0) L 03/28/19 04:27 Plt Count Comment Decreased (ADEQUATE) A 03/25/19 04:10 MPV 9.8 fL (7.4-11.0) 03/28/19 04:27 Neut % (Auto) 81.3 % (42.0-75.0) H 03/28/19 04:27 Lymph % (Auto) 6.7 % (21.0-51.0) L 03/28/19 04:27 Curry % (Auto) 9.8 % (0.0-13.0) 03/28/19 04:27 Eos % (Auto) 2.0 % (0.9-2.9) 03/28/19 04:27 Baso % (Auto) 0.2 % (0.2-1.0) 03/28/19 04:27 Neut # (Auto) 7.2 x10^3/uL (2.2-4.8) H 03/28/19 04:27 Lymph # (Auto) 0.6 X10^3/uL (1.3-2.9) L 03/28/19 04:27 Curry # (Auto) 0.9 x10^3/uL (0.3-0.8) H 03/28/19 04:27 Eos # (Auto) 0.2 x10^3/uL (0.0-0.2) 03/28/19 04:27 Baso # (Auto) 0.0 X10^3/uL (0.0-0.1) 03/28/19 04:27 Absolute Nucleated RBC 0.0 /100WBC 03/28/19 04:27 Total Counted 100 03/25/19 04:10 Neutrophils % (Manual) 95 % (39-76) H 03/25/19 04:10 Lymphocytes % (Manual) 3 % (13-43) L 03/25/19 04:10 Monocytes % (Manual) 2 % (4-9) L 03/25/19 04:10 Plt Morphology Comment Normal (NORMAL) 03/25/19 04:10 RBC Morphology Normal (NORMAL) 03/25/19 04:10 Sample Site Rrad 03/28/19 07:45 ABG pH 7.530 (7.35-7.45) H 03/28/19 07:45 ABG pCO2 51.0 mmHg (35.0-45.0) H* 03/28/19 07:45 ABG pO2 84.0 mmHg (80.0-100.0) 03/28/19 07:45 ABG HCO3 42.6 mmol/L (22-26) H* 03/28/19 07:45 ABG O2 Saturation 97.0 % (90-100) 03/28/19 07:45 ABG Base Excess 17.4 mmol/L (-2.0-2.0) H 03/28/19 07:45 Av Test Pos 03/28/19 07:45 A-a Gradient 80.0 mmHg 03/28/19 07:45 FiO2 32.0 03/28/19 07:45 Blood Gas Comments Julio well -sd 03/28/19 07:45 Sodium 138 mmol/L (136-145) 03/28/19 04:27 Corrected Sodium 142 mmol/L (136-145) 03/28/19 04:27 Potassium 4.4 mmol/L (3.5-5.1) 03/28/19 04:27 Chloride 98 mmol/L (98-107) 03/28/19 04:27 Carbon Dioxide 35.3 mmol/L (21-32) H 03/28/19 04:27 BUN 46 mg/dL (7-18) H 03/28/19 04:27 Creatinine 1.88 mg/dL (0.55-1.02) H 03/28/19 04:27 Est GFR (MDRD) Af Amer 33 (>60) L 03/28/19 04:27 Est GFR (MDRD) Non-Af 27 (>60) L 03/28/19 04:27 Glucose 258 mg/dL (65-99) H 03/28/19 04:27 Calcium 7.4 mg/dL (8.5-10.1) L 03/28/19 04:27 Corrected Calcium 8.2 mg/dL (8.5-10.1) L 03/28/19 04:27 Magnesium 5.6 mg/dL (1.7-2.9) H 03/26/19 05:13 Total Bilirubin 0.60 mg/dL (0.2-1.0) 03/28/19 04:27 AST 26 Units/L (15-37) 03/28/19 04:27 ALT 21 Units/L (12-78) 03/28/19 04:27 Alkaline Phosphatase 58 Units/L (46-116) 03/28/19 04:27 Creatine Kinase 60 Units/L (26-192) 03/22/19 06:28 CK-MB (CK-2) 1.9 ng/mL (0-4.0) 03/22/19 06:28 CK/CKMB % Calc 3.2 % (<4) 03/22/19 06:28 Troponin I 0.22 ng/mL (0-1.5) 03/22/19 06:28 Total Protein 6.3 g/dL (6.4-8.2) L 03/28/19 04:27 Albumin 3.0 g/dL (3.4-5.0) L 03/28/19 04:27 Globulin 3.3 g/dL (2.5-4.5) 03/28/19 04:27 Albumin/Globulin Ratio 0.9 Ratio (1.1-2.1) L 03/28/19 04:27 Specimen Type Catherized urine 03/21/19 21:10 Urine Color Yellow (YELLOW) 03/21/19 21:10 Urine Appearance Slightly hazy (CLEAR) 03/21/19 21:10 Urine pH 6.0 (5.0 - 8.0) 03/21/19 21:10 Ur Specific [place] 1.010 (1.000-1.030) 03/21/19 21:10 Urine Protein 2+ (NEGATIVE) 03/21/19 21:10 Urine Glucose (UA) Negative (NEGATIVE) 03/21/19 21:10 Urine Ketones 1+ (NEGATIVE) 03/21/19 21:10 Urine Occult Blood 1+ (NEGATIVE) 03/21/19 21:10 Urine Nitrite Negative (NEGATIVE) 03/21/19 21:10 Urine Bilirubin Negative (NEGATIVE) 03/21/19 21:10 Urine Urobilinogen Normal (NORMAL) 03/21/19 21:10 Ur Leukocyte Esterase Negative (NEGATIVE) 03/21/19 21:10 Urine RBC 3-5 /HPF (NONE SEEN) 03/21/19 21:10 Urine WBC None seen /HPF (NONE SEEN) 03/21/19 21:10 Ur Squamous Epith Cells Rare /HPF (NEGATIVE) 03/21/19 21:10 Amorphous Sediment 2+ /HPF (NEGATIVE) 03/21/19 21:10 Urine Bacteria Trace /HPF (NEGATIVE) 03/21/19 21:10 Hyaline Casts Rare /LPF (NEGATIVE) 03/21/19 21:10 Ur Culture Indicated? 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
[2019-03-28] MEDS ORDERED: NS 100 ML IV + SPIKE MINIBAG* 100 ML ONE (20:40)
[2019-03-28] MEDS: SNACK - Diabetic Appropriate PO SCH (22:35)
[2019-03-29] MEDS: MORPHINE SULFATE INJ 2 MG INJ IVP PRN ×2 (01:50→05:54)
[2019-03-29 05:25] LABS: BASOPHILS % (AUTO) 0.1 % (0.2-1.0); EOSINOPHILS # (AUTO) 0.2 x10^3/uL (0.0-0.2); EOSINOPHILS % (AUTO) 1.9 % (0.9-2.9); HEMATOCRIT 37.7 % (36.0-47.0); HEMOGLOBIN 12.3 g/dL (12.0-16.0); LYMPHOCYTES # (AUTO) 0.8 X10^3/uL (1.3-2.9); MEAN CORPUSCULAR HEMOGLOBIN 29.9 pg (27.0-34.0); MEAN CORPUSCULAR HGB CONC 32.7 g/dL (33.0-35.0); MEAN CORPUSCULAR VOLUME 91.5 fL (80.0-100.0); MEAN PLATELET VOLUME 9.7 fL (7.4-11.0); MONOCYTES # (AUTO) 1.3 x10^3/uL (0.3-0.8); MONOCYTES % (AUTO) 11.2 % (0.0-13.0); NEUTROPHILS # (AUTO) 8.9 x10^3/uL (2.2-4.8); NEUTROPHILS % (AUTO) 79.8 % (42.0-75.0); PLATELET COUNT 141 X10^3/uL (150.0-450.0); RED BLOOD COUNT 4.11 X10^6/uL (3.5-5.4); RED CELL DISTRIBUTION WIDTH 15.7 % (11.6-16.5); WHITE BLOOD COUNT 11.1 X10^3/uL (3.6-10.0)
[2019-03-29] MEDS: HumuLIN R SUBCUT PRN ×4 (05:39→20:52)
[2019-03-29 05:41] LABS: ALANINE AMINOTRANSFERASE 20 Units/L (12-78); ALBUMIN 3.4 g/dL (3.4-5.0); ALKALINE PHOSPHATASE 80 Units/L (46-116); ASPARTATE AMINO TRANSFERASE 31 Units/L (15-37); BLOOD UREA NITROGEN 36 mg/dL (7-18); CALCIUM 7.7 mg/dL (8.5-10.1); CARBON DIOXIDE 36.6 mmol/L (21-32); CHLORIDE 103 mmol/L (98-107); COR NA(FOR HYPERGLY) 146 mmol/L (136-145); CREATININE 1.52 mg/dL (0.55-1.02); SODIUM 145 mmol/L (136-145); TOTAL PROTEIN 6.7 g/dL (6.4-8.2); eGFR NON BLACK RACES 35 (>60)
--- NOTE | 2019-03-29 06:06 | RAD ---
Chest radiograph, single view History: Shortness of breath Comparison: 03/28/2019. Findings: There is cardiomegaly and pulmonary vasculature congestion. There is improvement in right basilar pleural effusion. Left basilar pleural effusion is stable. No new consolidation. No evidence of pneumothorax. Conclusion: Improving right basilar pleural effusion. Reported By:
[2019-03-29] MEDS: XOPENEX 1.25 MG/3 ML NEBULE NEB SCH ×4 (09:15→20:43)
[2019-03-29] MEDS: PULMICORT NEB TX 0.5 MG NEB SCH ×2 (09:16→20:43)
[2019-03-29] MEDS: LOVENOX INJ 30 MG SYR SC SCH (10:06)
[2019-03-29] MEDS: ALBUMIN HUMAN 25%- 100 ML 100 ML IV SCH (10:07)
[2019-03-29] MEDS: MIRALAX POWDER (1 DOSE 17 G) PO SCH (10:08)
[2019-03-29] MEDS: PROTONIX INJ 40 MG VIAL IVP SCH (10:08)
[2019-03-29] MEDS: LEVEMIR SC SCH (10:09)
[2019-03-29] MEDS: FORTAZ or TAZICEF VIAL INJ IVP SCH ×2 (10:09→20:51)
[2019-03-29] MEDS: CARDIZEM CD 180 MG PO SCH (10:09)
[2019-03-29] MEDS: CYMBALTA PO SCH (10:09)
[2019-03-29] MEDS: NYSTATIN SUSP PO SCH ×4 (10:09→20:52)
[2019-03-29] MEDS: LEVAQUIN PREMIX IV 250 MG 250 MG/50 ML BAG IV SCH (10:12)
--- NOTE | 2019-03-29 19:15 | PCM.PROG ---
Progress Note - Progress Note for Day of Date of Exam: 03/28/19 - Subjective Subjective: IS BEING TREATED FOR RESPIRATORY FAILURE WITH HYPOXIA AND HYPERCAPNIA AND COPD WITH ACUTE BRONCHITIS. TODAY, SHE IS ALERT AND ORIENTED, SITTING UP IN BED ON MORNING ROUNDS. SHE IS CURRENTLY WEARING OXYGEN VIA NASAL CANNULA. SHE CONTINUES WITH SHORTNESS OF BREATH, BUT REPORTS SLIGHT IMPROVEMENT IN SYMPTOMS SINCE YESTERDAY. ON EXAMINATION, SHE IS NOTED TO BE TACHYCARDIC WITH HR IN THE 130S. BILATERAL LUNGS CONTINUE WITH SCATTERED WHEEZING. ABDOMEN IS FLAT, SOFT, AND NOTED WITH DIFFUSE TENDERNESS TO PALPATION. HYPOACTIVE BOWEL RSOUNDS ARE NOTED. HER VITALS THIS MORNING ARE: 98.1-130-24-98%-138/73. LABS WERE OBTAINED. ABNORMAL LAB VALUES INCLUDE THE FOLLOWING: HGB 11.8, HCT 35.3, PLT COUNT 113, CARBON DIOXIDE 35.3, BUN 46, CREATININE 1.88, GLUCOSE 258, CALCIUM 7.4, TOTAL PROTEIN 6.3, ALBUMIN 3.0. A BLOOD GAS WAS OBTAINED TODAY AND REVEALED: PH 7.530, PC02 51.0, P02 84.0, HC03 42.6, 02 SATURATION 97.0, BASE EXCESS 17.4. A CHEST XRAY WAS OBTAINED AND REVEALED: Stable examination with bibasilar pleural effusions, more pronounced on the right. WE WILL CONTINUE WITH IV ANTIBIOTICS AND CURRENT PLAN OF CARE TODAY. OTHERWISE, WE WILL FOLLOW UP WITH AM LABS AND CHEST XRAY AND CONTINUE TO MONITOR. - Past Medical Family Social History Past Med/Fam/Surg Hx: No changes since H&P Allergies: Allergies No Known Drug Allergies Allergy (Verified 03/21/19 21:53) - Review of Systems ROS: No change since H&P - Vital Signs and I&O's Vital Signs: Temperature 99.2 F Pulse Rate 76 Respiratory Rate 25 Blood Pressure 144/66 O2 Sat by Pulse Oximetry 93 Intake and Output: Intake & Output 03/27/19 03/28/19 03/29/19 03/30/19 11:59 11:59 11:59 11:59 Intake Total 930 / 930 720 / 720 660 / 660 150 / 150 Output Total 1999 / 1999 2650 / 2650 1400 / 1400 350 / 350 Balance -1070 / -1070 -1930 / -1930 -740 / -740 -200 / -200 - Physical Exam Oriented: Normal Eyes: Normal Ear: Normal Nose: Normal Throat: Normal Respiratory: Generalized, Wheezes Cardiovascular: Normal. negative: S3, S4, Murmur : Normal Auscultation: Bowel Sounds: Normal Tenderness: Normal Skin: Normal Musculoskeletal: Normal Psychiatric: Anxiety Mood Description: Anxious Affect: Anxious Speech Pattern: Clear, Appropriate - Laboratory and Diagnostics Result Diagrams: 03/29/19 04:20 03/29/19 04:20 Labs: 03/26/19 09:00 Blood Blood Culture - Preliminary 03/26/19 08:55 Blood Blood Culture - Preliminary Laboratory WBC 11.1 X10^3/uL (3.6-10.0) H 03/29/19 04:20 RBC 4.11 X10^6/uL (3.5-5.4) 03/29/19 04:20 Hgb 12.3 g/dL (12.0-16.0) 03/29/19 04:20 Hct 37.7 % (36.0-47.0) 03/29/19 04:20 MCV 91.5 fL (80.0-100.0) 03/29/19 04:20 MCH 29.9 pg (27.0-34.0) 03/29/19 04:20 MCHC 32.7 g/dL (33.0-35.0) L 03/29/19 04:20 RDW 15.7 % (11.6-16.5) 03/29/19 04:20 Plt Count 141 X10^3/uL (150.0-450.0) L 03/29/19 04:20 Plt Count Comment Decreased (ADEQUATE) A 03/25/19 04:10 MPV 9.7 fL (7.4-11.0) 03/29/19 04:20 Neut % (Auto) 79.8 % (42.0-75.0) H 03/29/19 04:20 Lymph % (Auto) 7.0 % (21.0-51.0) L 03/29/19 04:20 Wolfe % (Auto) 11.2 % (0.0-13.0) 03/29/19 04:20 Eos % (Auto) 1.9 % (0.9-2.9) 03/29/19 04:20 Baso % (Auto) 0.1 % (0.2-1.0) L 03/29/19 04:20 Neut # (Auto) 8.9 x10^3/uL (2.2-4.8) H 03/29/19 04:20 Lymph # (Auto) 0.8 X10^3/uL (1.3-2.9) L 03/29/19 04:20 Wolfe # (Auto) 1.3 x10^3/uL (0.3-0.8) H 03/29/19 04:20 Eos # (Auto) 0.2 x10^3/uL (0.0-0.2) 03/29/19 04:20 Baso # (Auto) 0.0 X10^3/uL (0.0-0.1) 03/29/19 04:20 Absolute Nucleated RBC 0.0 /100WBC 03/29/19 04:20 Total Counted 100 03/25/19 04:10 Neutrophils % (Manual) 95 % (39-76) H 03/25/19 04:10 Lymphocytes % (Manual) 3 % (13-43) L 03/25/19 04:10 Monocytes % (Manual) 2 % (4-9) L 03/25/19 04:10 Plt Morphology Comment Normal (NORMAL) 03/25/19 04:10 RBC Morphology Normal (NORMAL) 03/25/19 04:10 Sample Site Rrad 03/28/19 07:45 ABG pH 7.530 (7.35-7.45) H 03/28/19 07:45 ABG pCO2 51.0 mmHg (35.0-45.0) H* 03/28/19 07:45 ABG pO2 84.0 mmHg (80.0-100.0) 03/28/19 07:45 ABG HCO3 42.6 mmol/L (22-26) H* 03/28/19 07:45 ABG O2 Saturation 97.0 % (90-100) 03/28/19 07:45 ABG Base Excess 17.4 mmol/L (-2.0-2.0) H 03/28/19 07:45 Av Test Pos 03/28/19 07:45 A-a Gradient 80.0 mmHg 03/28/19 07:45 FiO2 32.0 03/28/19 07:45 Blood Gas Comments Julio well -sd 03/28/19 07:45 Sodium 145 mmol/L (136-145) 03/29/19 04:20 Corrected Sodium 146 mmol/L (136-145) H 03/29/19 04:20 Potassium 3.9 mmol/L (3.5-5.1) 03/29/19 04:20 Chloride 103 mmol/L (98-107) 03/29/19 04:20 Carbon Dioxide 36.6 mmol/L (21-32) H 03/29/19 04:20 BUN 36 mg/dL (7-18) H 03/29/19 04:20 Creatinine 1.52 mg/dL (0.55-1.02) H 03/29/19 04:20 Est GFR (MDRD) Af Amer 42 (>60) L 03/29/19 04:20 Est GFR (MDRD) Non-Af 35 (>60) L 03/29/19 04:20 Glucose 162 mg/dL (65-99) H 03/29/19 04:20 Calcium 7.7 mg/dL (8.5-10.1) L 03/29/19 04:20 Corrected Calcium TNP 03/29/19 04:20 Magnesium 5.3 mg/dL (1.7-2.9) H 03/29/19 04:20 Total Bilirubin 0.80 mg/dL (0.2-1.0) 03/29/19 04:20 AST 31 Units/L (15-37) 03/29/19 04:20 ALT 20 Units/L (12-78) 03/29/19 04:20 Alkaline Phosphatase 80 Units/L (46-116) 03/29/19 04:20 Creatine Kinase 60 Units/L (26-192) 03/22/19 06:28 CK-MB (CK-2) 1.9 ng/mL (0-4.0) 03/22/19 06:28 CK/CKMB % Calc 3.2 % (<4) 03/22/19 06:28 Troponin I 0.22 ng/mL (0-1.5) 03/22/19 06:28 Total Protein 6.7 g/dL (6.4-8.2) 03/29/19 04:20 Albumin 3.4 g/dL (3.4-5.0) 03/29/19 04:20 Globulin 3.3 g/dL (2.5-4.5) 03/29/19 04:20 Albumin/Globulin Ratio 1.0 Ratio (1.1-2.1) L 03/29/19 04:20 Specimen Type Catherized urine 03/21/19 21:10 Urine Color Yellow (YELLOW) 03/21/19 21:10 Urine Appearance Slightly hazy (CLEAR) 03/21/19 21:10 Urine pH 6.0 (5.0 - 8.0) 03/21/19 21:10 Ur Specific [place] 1.010 (1.000-1.030) 03/21/19 21:10 Urine Protein 2+ (NEGATIVE) 03/21/19 21:10 Urine Glucose (UA) Negative (NEGATIVE) 03/21/19 21:10 Urine Ketones 1+ (NEGATIVE) 03/21/19 21:10 Urine Occult Blood 1+ (NEGATIVE) 03/21/19 21:10 Urine Nitrite Negative (NEGATIVE) 03/21/19 21:10 Urine Bilirubin Negative (NEGATIVE) 03/21/19 21:10 Urine Urobilinogen Normal (NORMAL) 03/21/19 21:10 Ur Leukocyte Esterase Negative (NEGATIVE) 03/21/19 21:10 Urine RBC 3-5 /HPF (NONE SEEN) 03/21/19 21:10 Urine WBC None seen /HPF (NONE SEEN) 03/21/19 21:10 Ur Squamous Epith Cells Rare /HPF (NEGATIVE) 03/21/19 21:10 Amorphous Sediment 2+ /HPF (NEGATIVE) 03/21/19 21:10 Urine Bacteria Trace /HPF (NEGATIVE) 03/21/19 21:10 Hyaline Casts Rare /LPF (NEGATIVE) 03/21/19 21:10 Ur Culture Indicated? 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
[2019-03-29] MEDS: SNACK - Diabetic Appropriate PO SCH (20:45)
[2019-03-30 05:09] LABS: BASOPHILS % (AUTO) 0.3 % (0.2-1.0); EOSINOPHILS # (AUTO) 0.3 x10^3/uL (0.0-0.2); EOSINOPHILS % (AUTO) 3.1 % (0.9-2.9); HEMATOCRIT 36.3 % (36.0-47.0); HEMOGLOBIN 12.1 g/dL (12.0-16.0); LYMPHOCYTES # (AUTO) 0.6 X10^3/uL (1.3-2.9); LYMPHOCYTES % (AUTO) 6.5 % (21.0-51.0); MEAN CORPUSCULAR HEMOGLOBIN 30.2 pg (27.0-34.0); MEAN CORPUSCULAR HGB CONC 33.2 g/dL (33.0-35.0); MEAN CORPUSCULAR VOLUME 90.7 fL (80.0-100.0); MEAN PLATELET VOLUME 8.9 fL (7.4-11.0); MONOCYTES # (AUTO) 1.1 x10^3/uL (0.3-0.8); MONOCYTES % (AUTO) 11.6 % (0.0-13.0); NEUTROPHILS # (AUTO) 7.3 x10^3/uL (2.2-4.8); NEUTROPHILS % (AUTO) 78.5 % (42.0-75.0); PLATELET COUNT 138 X10^3/uL (150.0-450.0); RED BLOOD COUNT 4.01 X10^6/uL (3.5-5.4); RED CELL DISTRIBUTION WIDTH 15.5 % (11.6-16.5); WHITE BLOOD COUNT 9.3 X10^3/uL (3.6-10.0)
[2019-03-30 05:37] LABS: ALANINE AMINOTRANSFERASE 21 Units/L (12-78); ALBUMIN 3.3 g/dL (3.4-5.0); ALKALINE PHOSPHATASE 71 Units/L (46-116); ASPARTATE AMINO TRANSFERASE 26 Units/L (15-37); BLOOD UREA NITROGEN 28 mg/dL (7-18); CALCIUM 7.6 mg/dL (8.5-10.1); CARBON DIOXIDE 34.6 mmol/L (21-32); CHLORIDE 102 mmol/L (98-107); COR CA(FOR HYPOALB) 8.2 mg/dL (8.5-10.1); CREATININE 1.32 mg/dL (0.55-1.02); SODIUM 142 mmol/L (136-145); TOTAL PROTEIN 6.4 g/dL (6.4-8.2); eGFR NON BLACK RACES 41 (>60)
[2019-03-30] MEDS: XOPENEX 1.25 MG/3 ML NEBULE NEB SCH ×5 (06:21→20:17)
--- NOTE | 2019-03-30 08:06 | RAD ---
HISTORY: Shortness of breath Study: Single-view chest Comparison: 03/29/2019 Findings: The trachea is midline. The cardiac silhouette is accentuated by portable technique. Chronic interstitial lung changes are observed without focal infiltrate or effusion. The bony thorax is unremarkable. IMPRESSION: Chronic interstitial lung changes without focal infiltrate or effusion. Reported By:
--- NOTE | 2019-03-30 08:55 | RAD ---
HISTORY: Abdominal pain Study: KUB Comparison: 03/26/2019 Findings: Evaluation of the abdomen demonstrates a normal bowel gas pattern. No pathological soft tissue mass or calcification can be observed. The bony structures are grossly intact. IMPRESSION: 1. No evidence for acute abdominal pathology identified. Reported By:
[2019-03-30] MEDS: PULMICORT NEB TX 0.5 MG NEB SCH ×2 (09:22→20:17)
[2019-03-30] MEDS: PROTONIX INJ 40 MG VIAL IVP SCH (10:49)
[2019-03-30] MEDS: ALBUMIN HUMAN 25%- 100 ML 100 ML IV SCH (10:49)
[2019-03-30] MEDS: CYMBALTA PO SCH (10:50)
[2019-03-30] MEDS: LOVENOX INJ 30 MG SYR SC SCH (10:50)
[2019-03-30] MEDS: CARDIZEM CD 180 MG PO SCH (10:50)
[2019-03-30] MEDS: FORTAZ or TAZICEF VIAL INJ IVP SCH ×2 (10:50→20:30)
[2019-03-30] MEDS: LEVAQUIN PREMIX IV 250 MG 250 MG/50 ML BAG IV SCH (10:50)
[2019-03-30] MEDS: LEVEMIR SC SCH (10:51)
[2019-03-30] MEDS: MIRALAX POWDER (1 DOSE 17 G) PO SCH (10:51)
[2019-03-30] MEDS: NYSTATIN SUSP PO SCH ×4 (10:51→20:31)
[2019-03-30] MEDS: HumuLIN R SUBCUT PRN (12:30)
--- NOTE | 2019-03-30 16:53 | PCM.PROG ---
Progress Note - Progress Note for Day of Date of Exam: 03/29/19 - Subjective Subjective: IS BEING TREATED FOR RESPIRATORY FAILURE WITH HYPOXIA AND HYPERCAPNIA AND COPD WITH ACUTE BRONCHITIS. TODAY, SHE IS ALERT AND ORIENTED, SITTING UP IN BED ON MORNING ROUNDS. SHE IS CURRENTLY WEARING OXYGEN VIA NASAL CANNULA. SHE CONTINUES WITH SHORTNESS OF BREATH, BUT REPORTS SLIGHT IMPROVEMENT IN SYMPTOMS SINCE YESTERDAY. FAMILY FEELS THOUGH PATIENT IS SEVERELY DEPRESSED. ON EXAMINATION, HEART IS REGULAR IN RATE AND RHYTHM. BILATERAL LUNGS CONTINUE WITH SCATTERED WHEEZING. ABDOMEN IS FLAT, SOFT, AND NOTED WITH DIFFUSE TENDERNESS TO PALPATION. HYPOACTIVE BOWEL RSOUNDS ARE NOTED. HER VITALS THIS MORNING ARE: 98.0-75-23-96%-139/65. LABS WERE OBTAINED. ABNORMAL LAB VALUES INCLUDE THE FOLLOWING: WBC 11.1, PLT COUNT 141, CARBON DIOXIDE 36.6, BUN 36, CREATININE 1.52, GLUCOSE 162, CALCIUM 7.7, MAGNESIUM 5.3. A CHEST XRAY WAS OBTAINED AND REVEALED: Improving right basilar pleural effusion. WE WILL CONTINUE WITH IV ANTIBIOTICS AND CURRENT PLAN OF CARE TODAY. WE WILL START CYMBA LTA 30MG PO DAILY. OTHERWISE, WE WILL FOLLOW UP WITH AM LABS AND CHEST XRAY AND CONTINUE TO MONITOR. - Past Medical Family Social History Past Med/Fam/Surg Hx: No changes since H&P Allergies: Allergies No Known Drug Allergies Allergy (Verified 03/21/19 21:53) - Review of Systems ROS: No change since H&P - Vital Signs and I&O's Vital Signs: Temperature 98 F Pulse Rate 82 Respiratory Rate 17 Blood Pressure 104/52 O2 Sat by Pulse Oximetry 99 Intake and Output: Intake & Output 03/28/19 03/29/19 03/30/19 03/31/19 11:59 11:59 11:59 11:59 Intake Total 720 / 720 660 / 660 170 / 170 150 / 150 Output Total 2650 / 2650 1400 / 1400 950 / 950 Balance -1930 / -1930 -740 / -740 -780 / -780 150 / 150 - Physical Exam Oriented: Normal Eyes: Normal Ear: Normal Nose: Normal Throat: Normal Respiratory: Generalized, Wheezes Cardiovascular: Normal. negative: S3, S4, Murmur : Normal Auscultation: Bowel Sounds: Normal Tenderness: Normal Skin: Normal Musculoskeletal: Normal Psychiatric: Anxiety Mood Description: Anxious Affect: Anxious Speech Pattern: Clear, Appropriate - Laboratory and Diagnostics Result Diagrams: 03/30/19 04:53 03/30/19 04:53 Labs: 03/26/19 09:00 Blood Blood Culture - Preliminary 03/26/19 08:55 Blood Blood Culture - Preliminary Laboratory WBC 9.3 X10^3/uL (3.6-10.0) 03/30/19 04:53 RBC 4.01 X10^6/uL (3.5-5.4) 03/30/19 04:53 Hgb 12.1 g/dL (12.0-16.0) 03/30/19 04:53 Hct 36.3 % (36.0-47.0) 03/30/19 04:53 MCV 90.7 fL (80.0-100.0) 03/30/19 04:53 MCH 30.2 pg (27.0-34.0) 03/30/19 04:53 MCHC 33.2 g/dL (33.0-35.0) 03/30/19 04:53 RDW 15.5 % (11.6-16.5) 03/30/19 04:53 Plt Count 138 X10^3/uL (150.0-450.0) L 03/30/19 04:53 Plt Count Comment Decreased (ADEQUATE) A 03/25/19 04:10 MPV 8.9 fL (7.4-11.0) 03/30/19 04:53 Neut % (Auto) 78.5 % (42.0-75.0) H 03/30/19 04:53 Lymph % (Auto) 6.5 % (21.0-51.0) L 03/30/19 04:53 [place] % (Auto) 11.6 % (0.0-13.0) 03/30/19 04:53 Eos % (Auto) 3.1 % (0.9-2.9) H 03/30/19 04:53 Baso % (Auto) 0.3 % (0.2-1.0) 03/30/19 04:53 Neut # (Auto) 7.3 x10^3/uL (2.2-4.8) H 03/30/19 04:53 Lymph # (Auto) 0.6 X10^3/uL (1.3-2.9) L 03/30/19 04:53 [place] # (Auto) 1.1 x10^3/uL (0.3-0.8) H 03/30/19 04:53 Eos # (Auto) 0.3 x10^3/uL (0.0-0.2) H 03/30/19 04:53 Baso # (Auto) 0.0 X10^3/uL (0.0-0.1) 03/30/19 04:53 Absolute Nucleated RBC 0.0 /100WBC 03/30/19 04:53 Total Counted 100 03/25/19 04:10 Neutrophils % (Manual) 95 % (39-76) H 03/25/19 04:10 Lymphocytes % (Manual) 3 % (13-43) L 03/25/19 04:10 Monocytes % (Manual) 2 % (4-9) L 03/25/19 04:10 Plt Morphology Comment Normal (NORMAL) 03/25/19 04:10 RBC Morphology Normal (NORMAL) 03/25/19 04:10 Sample Site Rrad 03/28/19 07:45 ABG pH 7.530 (7.35-7.45) H 03/28/19 07:45 ABG pCO2 51.0 mmHg (35.0-45.0) H* 03/28/19 07:45 ABG pO2 84.0 mmHg (80.0-100.0) 03/28/19 07:45 ABG HCO3 42.6 mmol/L (22-26) H* 03/28/19 07:45 ABG O2 Saturation 97.0 % (90-100) 03/28/19 07:45 ABG Base Excess 17.4 mmol/L (-2.0-2.0) H 03/28/19 07:45 Av Test Pos 03/28/19 07:45 A-a Gradient 80.0 mmHg 03/28/19 07:45 FiO2 32.0 03/28/19 07:45 Blood Gas Comments Julio well -sd 03/28/19 07:45 Sodium 142 mmol/L (136-145) 03/30/19 04:53 Corrected Sodium TNP 03/30/19 04:53 Potassium 3.7 mmol/L (3.5-5.1) 03/30/19 04:53 Chloride 102 mmol/L (98-107) 03/30/19 04:53 Carbon Dioxide 34.6 mmol/L (21-32) H 03/30/19 04:53 BUN 28 mg/dL (7-18) H 03/30/19 04:53 Creatinine 1.32 mg/dL (0.55-1.02) H 03/30/19 04:53 Est GFR (MDRD) Af Amer 50 (>60) L 03/30/19 04:53 Est GFR (MDRD) Non-Af 41 (>60) L 03/30/19 04:53 Glucose 93 mg/dL (65-99) 03/30/19 04:53 Calcium 7.6 mg/dL (8.5-10.1) L 03/30/19 04:53 Corrected Calcium 8.2 mg/dL (8.5-10.1) L 03/30/19 04:53 Magnesium 5.5 mg/dL (1.7-2.9) H 03/30/19 04:53 Total Bilirubin 0.80 mg/dL (0.2-1.0) 03/30/19 04:53 AST 26 Units/L (15-37) 03/30/19 04:53 ALT 21 Units/L (12-78) 03/30/19 04:53 Alkaline Phosphatase 71 Units/L (46-116) 03/30/19 04:53 Creatine Kinase 60 Units/L (26-192) 03/22/19 06:28 CK-MB (CK-2) 1.9 ng/mL (0-4.0) 03/22/19 06:28 CK/CKMB % Calc 3.2 % (<4) 03/22/19 06:28 Troponin I 0.22 ng/mL (0-1.5) 03/22/19 06:28 Total Protein 6.4 g/dL (6.4-8.2) 03/30/19 04:53 Albumin 3.3 g/dL (3.4-5.0) L 03/30/19 04:53 Globulin 3.1 g/dL (2.5-4.5) 03/30/19 04:53 Albumin/Globulin Ratio 1.1 Ratio (1.1-2.1) 03/30/19 04:53 Specimen Type Catherized urine 03/21/19 21:10 Urine Color Yellow (YELLOW) 03/21/19 21:10 Urine Appearance Slightly hazy (CLEAR) 03/21/19 21:10 Urine pH 6.0 (5.0 - 8.0) 03/21/19 21:10 Ur Specific [place] 1.010 (1.000-1.030) 03/21/19 21:10 Urine Protein 2+ (NEGATIVE) 03/21/19 21:10 Urine Glucose (UA) Negative (NEGATIVE) 03/21/19 21:10 Urine Ketones 1+ (NEGATIVE) 03/21/19 21:10 Urine Occult Blood 1+ (NEGATIVE) 03/21/19 21:10 Urine Nitrite Negative (NEGATIVE) 03/21/19 21:10 Urine Bilirubin Negative (NEGATIVE) 03/21/19 21:10 Urine Urobilinogen Normal (NORMAL) 03/21/19 21:10 Ur Leukocyte Esterase Negative (NEGATIVE) 03/21/19 21:10 Urine RBC 3-5 /HPF (NONE SEEN) 03/21/19 21:10 Urine WBC None seen /HPF (NONE SEEN) 03/21/19 21:10 Ur Squamous Epith Cells Rare /HPF (NEGATIVE) 03/21/19 21:10 Amorphous Sediment 2+ /HPF (NEGATIVE) 03/21/19 21:10 Urine Bacteria Trace /HPF (NEGATIVE) 03/21/19 21:10 Hyaline Casts Rare /LPF (NEGATIVE) 03/21/19 21:10 Ur Culture Indicated? No/not indicated 03/21/19 21:10 - Plan (1) Respiratory failure with hypoxia and hypercapnia Status: Acute Qualifiers: Chronicity: acute on chronic Qualified Code(s): J96.21 - Acute and chronic respiratory failure with hypoxia; J96.22 - Acute and chronic respiratory failure with hypercapnia Plan: BIPAP, SUPPLEMENTAL OXYGEN, RESPIRATORY TX, IV ANTIBIOTICS, CONTINUE TO MONITOR (2) COPD with acute bronchitis Status: Acute Plan: BIPAP, SUPPLEMENTAL OXYGEN, RESPIRATORY TX, IV ANTIBIOTICS, CONTINUE TO MONITOR (3) Sustained SVT Status: Resolved Plan: CARDIZEM CD 180MG PO DAILY, SUPPLEMENTAL OXYGEN, BIRD RAISER, CONTINUE TO MONITOR (4) Anxiety Status: Acute Plan: ATIVAN PRN, CONTINUE TO MONITOR (5) Abdominal pain Status: Acute Qualifiers: Abdominal location: generalized Qualified Code(s): R10.84 - Generalized abdominal pain Plan: BOWEL REGIMEN, CONTINUE TO MONITOR
[2019-03-30] MEDS: CHECK PATCH XX SCH (20:30)
[2019-03-30] MEDS: SNACK - Diabetic Appropriate PO SCH (20:30)
[2019-03-30] MEDS: MORPHINE SULFATE INJ 2 MG INJ IVP PRN (22:52)
[2019-03-31] MEDS: PULMICORT NEB TX 0.5 MG NEB SCH (08:07)
[2019-03-31] MEDS: XOPENEX 1.25 MG/3 ML NEBULE NEB SCH (08:07)
[2019-03-31] MEDS ORDERED: DURAGESIC 100 mcg/HR PATCH TD SCH ×2 (10:00→22:59)
[2019-03-31] MEDS: CHECK PATCH XX SCH ×2 (10:55→21:11)
[2019-03-31] MEDS: VERSED 100 MG in NS 100 ML IV 80 ML IV PRN (11:24)
--- NOTE | 2019-03-31 20:39 | PCM.PROG ---
Progress Note - Progress Note for Day of Date of Exam: 03/30/19 - Subjective Subjective: IS BEING TREATED FOR RESPIRATORY FAILURE WITH HYPOXIA AND HYPERCAPNIA AND COPD WITH ACUTE BRONCHITIS. TODAY, SHE IS ALERT AND ORIENTED, SITTING UP IN BED ON MORNING ROUNDS. SHE IS CURRENTLY WEARING OXYGEN VIA NASAL CANNULA. SHE REPORTS INCREASED SHORTNESS OF BREATH AND WEAKNESS TODAY. SHE HAS A HISTORY OF EMPHYSEMA. 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 STAFF REPORTS THAT HER OXYGEN SATURATIONS DROP TO THE LOW 80s WHEN OXYGEN IS REMOVED. PATIENT ALSO REPORTS ABDOMINAL PAIN. SHE HAS NOT HAD A BOWEL MOVEMENT IN SEVERAL DAYS. ON EXAMINATION, HEART IS REGULAR IN RATE AND RHYTHM. BILATERAL LUNGS CONTINUE WITH SCATTERED WHEEZING. ABDOMEN IS FLAT, SOFT, AND NOTED WITH DIFFUSE TENDERNESS TO PALPATION. HYPOACTIVE BOWEL RSOUNDS ARE NOTED. HER VITALS THIS MORNING ARE: 98.0-99-14-95%NC-134/67. LABS WERE OBTAINED. ABNORMAL LAB VALUES INCLUDE THE FOLLOWING: WBC 11.1, PLT COUNT 141, CARBON DIOIXDE 34.6, BUN 28, CREATININE 1.32, CALCIUM 7.6, MAGNESIUM 5.5, ALBUMIN 3.3. A CHEST XRAY WAS OBTAINED AND REVEALED: Chronic interstitial lung changes without focal infiltrate or effusion. WE WILL CONTINUE WITH IV ANTIBIOTICS AND CURRENT PLAN OF CARE TODAY. WE WILL ORDER FOR SOAP SUDS ENEMAS UNTIL A BOWEL MOVEMENT IS PRODUCED. OTHERWISE, WE WILL FOLLOW UP WITH AM LABS AND CHEST XRAY AND CONTINUE TO MONITOR. - Past Medical Family Social History Past Med/Fam/Surg Hx: No changes since H&P Allergies: Allergies No Known Drug Allergies Allergy (Verified 03/21/19 21:53) - Review of Systems ROS: No change since H&P - Vital Signs and I&O's Vital Signs: Temperature 98.2 F Pulse Rate 77 Respiratory Rate 24 Blood Pressure 133/66 O2 Sat by Pulse Oximetry 96 Intake and Output: Intake & Output 03/29/19 03/30/19 03/31/19 04/01/19 11:59 11:59 11:59 11:59 Intake Total 660 / 660 170 / 170 150 / 150 70 / 70 Output Total 1400 / 1400 950 / 950 700 / 700 400 / 400 Balance -740 / -740 -780 / -780 -550 / -550 -330 / -330 - Physical Exam Oriented: Normal Eyes: Normal Ear: Normal Nose: Normal Throat: Normal Respiratory: Generalized, Wheezes Cardiovascular: Normal. negative: S3, S4, Murmur : Normal Auscultation: Bowel Sounds: Normal Palpation: Normal Tenderness: Normal Skin: Normal Musculoskeletal: Normal Psychiatric: Anxiety Mood Description: Anxious Affect: Anxious Speech Pattern: Clear - Laboratory and Diagnostics Result Diagrams: 03/30/19 04:53 03/30/19 04:53 Labs: 03/26/19 08:55 Blood Blood Culture - Final 03/26/19 09:00 Blood Blood Culture - Final Laboratory WBC 9.3 X10^3/uL (3.6-10.0) 03/30/19 04:53 RBC 4.01 X10^6/uL (3.5-5.4) 03/30/19 04:53 Hgb 12.1 g/dL (12.0-16.0) 03/30/19 04:53 Hct 36.3 % (36.0-47.0) 03/30/19 04:53 MCV 90.7 fL (80.0-100.0) 03/30/19 04:53 MCH 30.2 pg (27.0-34.0) 03/30/19 04:53 MCHC 33.2 g/dL (33.0-35.0) 03/30/19 04:53 RDW 15.5 % (11.6-16.5) 03/30/19 04:53 Plt Count 138 X10^3/uL (150.0-450.0) L 03/30/19 04:53 Plt Count Comment Decreased (ADEQUATE) A 03/25/19 04:10 MPV 8.9 fL (7.4-11.0) 03/30/19 04:53 Neut % (Auto) 78.5 % (42.0-75.0) H 03/30/19 04:53 Lymph % (Auto) 6.5 % (21.0-51.0) L 03/30/19 04:53 [place] % (Auto) 11.6 % (0.0-13.0) 03/30/19 04:53 Eos % (Auto) 3.1 % (0.9-2.9) H 03/30/19 04:53 Baso % (Auto) 0.3 % (0.2-1.0) 03/30/19 04:53 Neut # (Auto) 7.3 x10^3/uL (2.2-4.8) H 03/30/19 04:53 Lymph # (Auto) 0.6 X10^3/uL (1.3-2.9) L 03/30/19 04:53 [place] # (Auto) 1.1 x10^3/uL (0.3-0.8) H 03/30/19 04:53 Eos # (Auto) 0.3 x10^3/uL (0.0-0.2) H 03/30/19 04:53 Baso # (Auto) 0.0 X10^3/uL (0.0-0.1) 03/30/19 04:53 Absolute Nucleated RBC 0.0 /100WBC 03/30/19 04:53 Total Counted 100 03/25/19 04:10 Neutrophils % (Manual) 95 % (39-76) H 03/25/19 04:10 Lymphocytes % (Manual) 3 % (13-43) L 03/25/19 04:10 Monocytes % (Manual) 2 % (4-9) L 03/25/19 04:10 Plt Morphology Comment Normal (NORMAL) 03/25/19 04:10 RBC Morphology Normal (NORMAL) 03/25/19 04:10 Sample Site Rrad 03/28/19 07:45 ABG pH 7.530 (7.35-7.45) H 03/28/19 07:45 ABG pCO2 51.0 mmHg (35.0-45.0) H* 03/28/19 07:45 ABG pO2 84.0 mmHg (80.0-100.0) 03/28/19 07:45 ABG HCO3 42.6 mmol/L (22-26) H* 03/28/19 07:45 ABG O2 Saturation 97.0 % (90-100) 03/28/19 07:45 ABG Base Excess 17.4 mmol/L (-2.0-2.0) H 03/28/19 07:45 Av Test Pos 03/28/19 07:45 A-a Gradient 80.0 mmHg 03/28/19 07:45 FiO2 32.0 03/28/19 07:45 Blood Gas Comments Julio well -sd 03/28/19 07:45 Sodium 142 mmol/L (136-145) 03/30/19 04:53 Corrected Sodium TNP 03/30/19 04:53 Potassium 3.7 mmol/L (3.5-5.1) 03/30/19 04:53 Chloride 102 mmol/L (98-107) 03/30/19 04:53 Carbon Dioxide 34.6 mmol/L (21-32) H 03/30/19 04:53 BUN 28 mg/dL (7-18) H 03/30/19 04:53 Creatinine 1.32 mg/dL (0.55-1.02) H 03/30/19 04:53 Est GFR (MDRD) Af Amer 50 (>60) L 03/30/19 04:53 Est GFR (MDRD) Non-Af 41 (>60) L 03/30/19 04:53 Glucose 93 mg/dL (65-99) 03/30/19 04:53 Calcium 7.6 mg/dL (8.5-10.1) L 03/30/19 04:53 Corrected Calcium 8.2 mg/dL (8.5-10.1) L 03/30/19 04:53 Magnesium 5.5 mg/dL (1.7-2.9) H 03/30/19 04:53 Total Bilirubin 0.80 mg/dL (0.2-1.0) 03/30/19 04:53 AST 26 Units/L (15-37) 03/30/19 04:53 ALT 21 Units/L (12-78) 03/30/19 04:53 Alkaline Phosphatase 71 Units/L (46-116) 03/30/19 04:53 Creatine Kinase 60 Units/L (26-192) 03/22/19 06:28 CK-MB (CK-2) 1.9 ng/mL (0-4.0) 03/22/19 06:28 CK/CKMB % Calc 3.2 % (<4) 03/22/19 06:28 Troponin I 0.22 ng/mL (0-1.5) 03/22/19 06:28 Total Protein 6.4 g/dL (6.4-8.2) 03/30/19 04:53 Albumin 3.3 g/dL (3.4-5.0) L 03/30/19 04:53 Globulin 3.1 g/dL (2.5-4.5) 03/30/19 04:53 Albumin/Globulin Ratio 1.1 Ratio (1.1-2.1) 03/30/19 04:53 Specimen Type Catherized urine 03/21/19 21:10 Urine Color Yellow (YELLOW) 03/21/19 21:10 Urine Appearance Slightly hazy (CLEAR) 03/21/19 21:10 Urine pH 6.0 (5.0 - 8.0) 03/21/19 21:10 Ur Specific [place] 1.010 (1.000-1.030) 03/21/19 21:10 Urine Protein 2+ (NEGATIVE) 03/21/19 21:10 Urine Glucose (UA) Negative (NEGATIVE) 03/21/19 21:10 Urine Ketones 1+ (NEGATIVE) 03/21/19 21:10 Urine Occult Blood 1+ (NEGATIVE) 03/21/19 21:10 Urine Nitrite Negative (NEGATIVE) 03/21/19 21:10 Urine Bilirubin Negative (NEGATIVE) 03/21/19 21:10 Urine Urobilinogen Normal (NORMAL) 03/21/19 21:10 Ur Leukocyte Esterase Negative (NEGATIVE) 03/21/19 21:10 Urine RBC 3-5 /HPF (NONE SEEN) 03/21/19 21:10 Urine WBC None seen /HPF (NONE SEEN) 03/21/19 21:10 Ur Squamous Epith Cells Rare /HPF (NEGATIVE) 03/21/19 21:10 Amorphous Sediment 2+ /HPF (NEGATIVE) 03/21/19 21:10 Urine Bacteria Trace /HPF (NEGATIVE) 03/21/19 21:10 Hyaline Casts Rare /LPF (NEGATIVE) 03/21/19 21:10 Ur Culture Indicated? No/not indicated 03/21/19 21:10 - Plan (1) Respiratory failure with hypoxia and hypercapnia Status: Acute Qualifiers: Chronicity: acute on chronic Qualified Code(s): J96.21 - Acute and chronic respiratory failure with hypoxia; J96.22 - Acute and chronic respiratory failure with hypercapnia Plan: BIPAP, SUPPLEMENTAL OXYGEN, RESPIRATORY TX, IV ANTIBIOTICS, CONTINUE TO MONITOR (2) COPD with acute bronchitis Status: Acute Plan: BIPAP, SUPPLEMENTAL OXYGEN, RESPIRATORY TX, IV ANTIBIOTICS, CONTINUE TO MONITOR (3) Sustained SVT Status: Resolved Plan: CARDIZEM CD 180MG PO DAILY, SUPPLEMENTAL OXYGEN, ROLLWAY MAN, CONTINUE TO MONITOR (4) Anxiety Status: Acute Plan: ATIVAN PRN, CONTINUE TO MONITOR (5) Abdominal pain Status: Acute Qualifiers: Abdominal location: generalized Qualified Code(s): R10.84 - Generalized a bdominal pain Plan: SOAP SUDS ENEMAS, BOWEL REGIMEN, CONTINUE TO MONITOR
[2019-04-01] MEDS: VERSED 100 MG in NS 100 ML IV 80 ML IV PRN ×2 (01:07→16:40)
[2019-04-01] MEDS ORDERED: MORPHINE SULFATE PCA 30 MG IVP PRN (09:53)
[2019-04-01] MEDS: CHECK PATCH XX SCH ×2 (10:20→22:37)
[2019-04-01] MEDS ORDERED: MORPHINE SULFATE PCA 30 MG ONE (16:30)
[2019-04-01] MEDS: MORPHINE SULFATE PCA 30 MG IVP PRN ×2 (16:37→20:03)
[2019-04-01 17:33] VITALS: BP 119/71
[2019-04-01] MEDS ORDERED: DURAGESIC 100 mcg/HR PATCH TD SCH (19:00)
[2019-04-01] MEDS ORDERED: DURAGESIC 100 mcg/HR PATCH TD ONE (19:17)
--- NOTE | 2019-04-01 20:34 | PCM.PROG ---
Progress Note - Progress Note for Day of Date of Exam: 03/31/19 - Subjective Subjective: IS BEING TREATED FOR RESPIRATORY FAILURE WITH HYPOXIA AND HYPERCAPNIA AND COPD WITH ACUTE BRONCHITIS. TODAY, SHE IS ALERT AND ORIENTED, LYING IN BED ON MORNING ROUNDS. SHE IS CURRENTLY WEARING OXYGEN VIA NASAL CANNULA. FAMILY REPORTS THAT SHE HAS BEEN WEAK, ANXIOUS, AND APPEARS TO HAVE DIFFICULTY BREATHING. SHE HAS A HISTORY OF EMPHYSEMA. STAFF REPORTS THAT HER OXYGEN SATURATIONS CONTINUE TO DROP TO THE LOW 80s WHEN OXYGEN IS REMOVED. ON EXAMINATION, HEART IS REGULAR IN RATE AND RHYTHM. BILATERAL LUNGS CONTINUE WITH SCATTERED WHEEZING. ABDOMEN IS FLAT, SOFT, AND NOTED WITH DIFFUSE TENDERNESS TO PALPATION. HYPOACTIVE BOWEL SOUNDS ARE NOTED. HER VITALS THIS MORNING ARE: 98.2-96-24-96%-133/66. LABS WERE OBTAINED. FAMILY AND PATIENT REFUSED LABS AND ANY FURTHER TREATMENT. THEY WISH FOR PATIENT TO BE KEPT COMFORTABLE. TODAY, WE WILL BEGIN PALLIATIVE CARE TREATMENT. WE WILL CONTINUE TO MONITOR PATIENT AND ADJUST MEDICATIONS NECESSARY. - Past Medical Family Social History Past Med/Fam/Surg Hx: No changes since H&P Allergies: Allergies No Known Drug Allergies Allergy (Verified 03/21/19 21:53) - Review of Systems ROS: No change since H&P - Vital Signs and I&O's Vital Signs: Temperature 97.0 F Pulse Rate [Left Brachial] 129 Pulse Rate 77 Respiratory Rate 7 Blood Pressure [Left Arm] 119/71 Blood Pressure 133/66 O2 Sat by Pulse Oximetry 98 Intake and Output: Intake & Output 03/30/19 03/31/19 04/01/19 04/02/19 11:59 11:59 11:59 11:59 Intake Total 170 / 170 150 / 150 630 / 630 0 / 0 Output Total 950 / 950 700 / 700 775 / 775 200 / 200 Balance -780 / -780 -550 / -550 -145 / -145 -200 / -200 - Physical Exam Oriented: Normal Eyes: Normal Ear: Normal Nose: Normal Throat: Normal Respiratory: Generalized, Wheezes Cardiovascular: Normal. negative: S3, S4, Murmur : Normal Auscultation: Bowel Sounds: Normal Palpation: Normal Tenderness: Normal Skin: Normal Musculoskeletal: Normal Psychiatric: Anxiety Mood Description: Anxious Affect: Anxious Speech Pattern: Aphasic - Laboratory and Diagnostics Result Diagrams: 03/30/19 04:53 03/30/19 04:53 Labs: 03/26/19 08:55 Blood Blood Culture - Final 03/26/19 09:00 Blood Blood Culture - Final Laboratory WBC 9.3 X10^3/uL (3.6-10.0) 03/30/19 04:53 RBC 4.01 X10^6/uL (3.5-5.4) 03/30/19 04:53 Hgb 12.1 g/dL (12.0-16.0) 03/30/19 04:53 Hct 36.3 % (36.0-47.0) 03/30/19 04:53 MCV 90.7 fL (80.0-100.0) 03/30/19 04:53 MCH 30.2 pg (27.0-34.0) 03/30/19 04:53 MCHC 33.2 g/dL (33.0-35.0) 03/30/19 04:53 RDW 15.5 % (11.6-16.5) 03/30/19 04:53 Plt Count 138 X10^3/uL (150.0-450.0) L 03/30/19 04:53 Plt Count Comment Decreased (ADEQUATE) A 03/25/19 04:10 MPV 8.9 fL (7.4-11.0) 03/30/19 04:53 Neut % (Auto) 78.5 % (42.0-75.0) H 03/30/19 04:53 Lymph % (Auto) 6.5 % (21.0-51.0) L 03/30/19 04:53 [place] % (Auto) 11.6 % (0.0-13.0) 03/30/19 04:53 Eos % (Auto) 3.1 % (0.9-2.9) H 03/30/19 04:53 Baso % (Auto) 0.3 % (0.2-1.0) 03/30/19 04:53 Neut # (Auto) 7.3 x10^3/uL (2.2-4.8) H 03/30/19 04:53 Lymph # (Auto) 0.6 X10^3/uL (1.3-2.9) L 03/30/19 04:53 [place] # (Auto) 1.1 x10^3/uL (0.3-0.8) H 03/30/19 04:53 Eos # (Auto) 0.3 x10^3/uL (0.0-0.2) H 03/30/19 04:53 Baso # (Auto) 0.0 X10^3/uL (0.0-0.1) 03/30/19 04:53 Absolute Nucleated RBC 0.0 /100WBC 03/30/19 04:53 Total Counted 100 03/25/19 04:10 Neutrophils % (Manual) 95 % (39-76) H 03/25/19 04:10 Lymphocytes % (Manual) 3 % (13-43) L 03/25/19 04:10 Monocytes % (Manual) 2 % (4-9) L 03/25/19 04:10 Plt Morphology Comment Normal (NORMAL) 03/25/19 04:10 RBC Morphology Normal (NORMAL) 03/25/19 04:10 Sample Site Rrad 03/28/19 07:45 ABG pH 7.530 (7.35-7.45) H 03/28/19 07:45 ABG pCO2 51.0 mmHg (35.0-45.0) H* 03/28/19 07:45 ABG pO2 84.0 mmHg (80.0-100.0) 03/28/19 07:45 ABG HCO3 42.6 mmol/L (22-26) H* 03/28/19 07:45 ABG O2 Saturation 97.0 % (90-100) 03/28/19 07:45 ABG Base Excess 17.4 mmol/L (-2.0-2.0) H 03/28/19 07:45 Av Test Pos 03/28/19 07:45 A-a Gradient 80.0 mmHg 03/28/19 07:45 FiO2 32.0 03/28/19 07:45 Blood Gas Comments Julio well -sd 03/28/19 07:45 Sodium 142 mmol/L (136-145) 03/30/19 04:53 Corrected Sodium TNP 03/30/19 04:53 Potassium 3.7 mmol/L (3.5-5.1) 03/30/19 04:53 Chloride 102 mmol/L (98-107) 03/30/19 04:53 Carbon Dioxide 34.6 mmol/L (21-32) H 03/30/19 04:53 BUN 28 mg/dL (7-18) H 03/30/19 04:53 Creatinine 1.32 mg/dL (0.55-1.02) H 03/30/19 04:53 Est GFR (MDRD) Af Amer 50 (>60) L 03/30/19 04:53 Est GFR (MDRD) Non-Af 41 (>60) L 03/30/19 04:53 Glucose 93 mg/dL (65-99) 03/30/19 04:53 Calcium 7.6 mg/dL (8.5-10.1) L 03/30/19 04:53 Corrected Calcium 8.2 mg/dL (8.5-10.1) L 03/30/19 04:53 Magnesium 5.5 mg/dL (1.7-2.9) H 03/30/19 04:53 Total Bilirubin 0.80 mg/dL (0.2-1.0) 03/30/19 04:53 AST 26 Units/L (15-37) 03/30/19 04:53 ALT 21 Units/L (12-78) 03/30/19 04:53 Alkaline Phosphatase 71 Units/L (46-116) 03/30/19 04:53 Creatine Kinase 60 Units/L (26-192) 03/22/19 06:28 CK-MB (CK-2) 1.9 ng/mL (0-4.0) 03/22/19 06:28 CK/CKMB % Calc 3.2 % (<4) 03/22/19 06:28 Troponin I 0.22 ng/mL (0-1.5) 03/22/19 06:28 Total Protein 6.4 g/dL (6.4-8.2) 03/30/19 04:53 Albumin 3.3 g/dL (3.4-5.0) L 03/30/19 04:53 Globulin 3.1 g/dL (2.5-4.5) 03/30/19 04:53 Albumin/Globulin Ratio 1.1 Ratio (1.1-2.1) 03/30/19 04:53 Specimen Type Catherized urine 03/21/19 21:10 Urine Color Yellow (YELLOW) 03/21/19 21:10 Urine Appearance Slightly hazy (CLEAR) 03/21/19 21:10 Urine pH 6.0 (5.0 - 8.0) 03/21/19 21:10 Ur Specific [place] 1.010 (1.000-1.030) 03/21/19 21:10 Urine Protein 2+ (NEGATIVE) 03/21/19 21:10 Urine Glucose (UA) Negative (NEGATIVE) 03/21/19 21:10 Urine Ketones 1+ (NEGATIVE) 03/21/19 21:10 Urine Occult Blood 1+ (NEGATIVE) 03/21/19 21:10 Urine Nitrite Negative (NEGATIVE) 03/21/19 21:10 Urine Bilirubin Negative (NEGATIVE) 03/21/19 21:10 Urine Urobilinogen Normal (NORMAL) 03/21/19 21:10 Ur Leukocyte Esterase Negative (NEGATIVE) 03/21/19 21:10 Urine RBC 3-5 /HPF (NONE SEEN) 03/21/19 21:10 Urine WBC None seen /HPF (NONE SEEN) 03/21/19 21:10 Ur Squamous Epith Cells Rare /HPF (NEGATIVE) 03/21/19 21:10 Amorphous Sediment 2+ /HPF (NEGATIVE) 03/21/19 21:10 Urine Bacteria Trace /HPF (NEGATIVE) 03/21/19 21:10 Hyaline Casts Rare /LPF (NEGATIVE) 03/21/19 21:10 Ur Culture Indicated? No/not indicated 03/21/19 21:10 - Plan (1) Palliative care status Status: Acute Plan: VERSED DRIP, FENTANYL PATCH, CONTINUE TO MONITOR (2) Respiratory failure with hypoxia and hypercapnia Status: Acute Qualifiers: Chronicity: acute on chronic Qualified Code(s): J96.21 - Acute and chronic respiratory failure with hypoxia; J96.22 - Acute and chronic respiratory failure with hypercapnia (3) COPD with acute bronchitis Status: Acute (4) Sustained SVT Status: Resolved (5) Anxiety Status: Acute (6) Abdominal pain Status: Acute Qualifiers: Abdominal location: generalized Qualified Code(s): R10.84 - Generalized abdominal pain
[2019-04-04 09:16] LABS: ABG HCO3 42.6 mmol/L (22-26)
== END 2019-04-01 21:30 | disposition expired | DRG 189 ==
LOC: ER 20:43 → ICU 03-22 00:17 → MED/SURG 03-31 09:50
PROVIDERS: ADMIT Internal Medicine; ATTEND Internal Medicine
DX: J44.0 Chronic obstructive pulmonary disease with (acute) lower respiratory infection; R10.84 Generalized abdominal pain; F41.8 Other specified anxiety disorders; Z66 Do not resuscitate; R13.11 Dysphagia, oral phase; J44.1 Chronic obstructive pulmonary disease with (acute) exacerbation; J20.9 Acute bronchitis, unspecified; Z51.5 Encounter for palliative care; J96.21 Acute and chronic respiratory failure with hypoxia; I47.1 Supraventricular tachycardia; R26.89 Other abnormalities of gait and mobility; R94.31 Abnormal electrocardiogram [ECG] [EKG]; J96.22 Acute and chronic respiratory failure with hypercapnia
CPT/HCPCS: 36415; 36600; 51702; 71010; 71045; 74000; 74018; 74220; 80048; 80053; 81001; 82550; 82553; 82803; 83735; 84484; 85025; 87040; 92526; 92610; 93005; 93306; 94640; 94660; 96365; 96367; 96374; 96375; 97110; 97162; 99285; A4216; A4222; A4618; A7030; C9113; P9047; J0696; J0713; J1650; J1815; J1940; J1956; J2060; J2250; J2270; J2271; J2920; J3475; J3490; J7030; J7050; J7620; J7626